=== PATIENT | male | born 1940 | race Caucasian/White ===

== ENCOUNTER → 2023-05-20 15:38 | Outpatient (REF) | payer OTHER, SELFPAY | LOC: RAD 15:38 | PROVIDERS: ATTENDING PHYSICIAN Orthopaedic Surgery Hand Surgery; FAMILY PHYSICIAN Family Medicine | DX: M25.521 Pain in right elbow (principal) | CPT/HCPCS: 73080 ==

== ENCOUNTER → 2023-06-30 08:11 | Outpatient (REF) | payer OTHER, SELFPAY | LOC: DHCBC MAIN 08:11 | PROVIDERS: ATTENDING PHYSICIAN Internal Medicine Cardiovascular Disease; FAMILY PHYSICIAN Family Medicine | DX: I10 Essential (primary) hypertension (principal); Z95.4 Presence of other heart-valve replacement | CPT/HCPCS: 93306 ==

== ENCOUNTER → 2024-09-11 09:08 | Outpatient (REF) | payer OTHER, SELFPAY | LOC: RCS 09:08 | PROVIDERS: ATTENDING PHYSICIAN Internal Medicine Cardiovascular Disease; FAMILY PHYSICIAN Family Medicine | DX: Z95.4 Presence of other heart-valve replacement (principal); R42 Dizziness and giddiness | CPT/HCPCS: 93306 ==

== ENCOUNTER 2024-11-29 05:22 | Inpatient (IN) | payer OTHER, SELFPAY ==
[2024-11-29] VITALS (18 sets, daily range): BP systolic 111–155; BP diastolic 67–97; BMI 28.5; BMI 28.4
[2024-11-29 03:12] LABS: Hematocrit 43.9 % (39.0-52.0); Hemoglobin 15.0 g/dL (13.0-18.0); Mean Corp Hgb Conc. 34.2 g/dL (33.0-37.0); Mean Corpuscular Volume 88.7 fL (80.0-94.0); Nucleated Red Blood Cells % 0 % (-); Platelet Count 164 10^3/uL (130-400); Red Cell Dist. Width 12.6 % (11.5-14.5)
[2024-11-29 03:38] LABS: ALT (SGPT) 24 U/L (0-50); AST (SGOT) 29 U/L (17-59); Albumin 4.2 g/dl (3.5-5.0); Alkaline Phosphatase 60 U/L (38-126); Blood Urea Nitrogen 25 mg/dl (9-20); Calcium 9.2 mg/dl (8.4-10.2); Carbon Dioxide 19 mmol/L (22-30); Chloride 108 mmol/L (98-107); Estimated Creatinine Clearance 53 ml/min; Glucose 185 mg/dl (70-99); Potassium 4.5 mmol/L (3.5-5.1); Sodium 137 mmol/L (135-145); Total Protein 6.8 g/dl (6.3-8.2); eGFR > 60.00
[2024-11-29 03:55] LABS: Troponin I 0.101 ng/ml
--- NOTE | 2024-11-29 04:07 | ED.GENMED ---
History of Present Illness
General
Chief Complaint: Breathing Problem
Source: patient
Exam Limitations: none
Time Seen by Provider: 11/29/24 02:47
History of Present Illness
History of Present Illness:
Note:
CHIEF COMPLAINT(S)
Shortness of breath and recent upper respiratory symptoms.
HISTORY OF PRESENT ILLNESS
The patient is a male presenting with a history of upper respiratory symptoms that began last Tuesday. He reports experiencing a persistent �nasty cold� initially, which he felt resolved by Tuesday. Subsequently, upon exertion, such as walking or
climbing stairs, he noticed significant shortness of breath. This shortness of breath ultimately prompted him to seek emergency medical assistance. He denies experiencing fever, and his pain is primarily attributed to the breathing difficulty,
although described as mild if present.
The patient reports undergoing a chest-related surgery approximately ten years ago involving a mechanical valve replacement and coronary artery procedures on the right coronary artery and the left anterior descending artery (RCA and LAD).
During the pre-hospital assessment by ambulance services, he received two albuterol treatments and steroids, which have aided in alleviating his breathing difficulties.
ALLERGIES
The patient reports allergies to aspirin, saccharin, lithium, rosuvastatin
SOCIAL HISTORY
The patient is currently on lithium for the management of bipolar disorder.
REVIEW OF SYSTEMS
- Respiratory: Reports significant shortness of breath, particularly on exertion.
- Cardiovascular: No history or symptoms of fever. Denies previous history of asthma, emphysema, or chronic obstructive pulmonary disease (COPD).
PHYSICAL EXAM
General: Alert, mild respiratory distress
Skin: Warm, dry.
Head: Normocephalic, atraumatic.
Neck: Supple, trachea midline. No JVD
Eye Ears, Nose, Mouth, and Throat: Oral mucosa moist.
Cardiovascular: Heart regular and tachycardic. No lower extremity edema, no jugular venous distension.
Respiratory: Respirations somewhat labored, lung sounds coarse bilaterally. Breathing treatments have provided symptom relief.
Back: Normal range of motion, Normal alignment.
Musculoskeletal: Normal range of motion, normal strength.
Neurological: Alert and oriented to person, place, time, and situation, No focal neurological deficit observed.
Psychiatric: Cooperative, appropriate mood & affect.
PROBLEM LIST
Acute:
- Shortness of breath
- Upper respiratory symptoms
Chronic:
- History of mechanical mitral valve replacement and coronary artery procedures
- Bipolar disorder
PLAN
1. Obtain chest X-ray and laboratory work to rule out pneumonia.
2. Test for COVID-19 and influenza.
3. Continuing observation and symptomatic treatment for shortness of breath.
DIFFERENTIAL DIAGNOSIS
The Differential Diagnosis includes, in no particular order and is not limited to:
1. Pneumonia
2. Chronic Obstructive Pulmonary Disease exacerbation
3. Heart failure
4. Pulmonary embolism
5. Acute bronchitis
6. Viral upper respiratory infection
7. Influenza
8. Asthma exacerbation
9. Anxiety or panic attack
10. Pulmonary edema
EKG
My independent EKG interpretation is:
- Rhythm: Sinus tachycardia
- Heart Rate: 119 bpm
- [place]: Normal
- Notable Changes: Non-specific ST-T wave changes noted
- Abnormality: Anterior R wave progression concerns
Disposition:
SUMMARY OF ENCOUNTER
The patient is an 84-year-old male who presented with hypoxia and dyspnea, exacerbated by a recent illness he described as similar to 'a few days.' He was seen by his primary care provider before presenting to the emergency department with
significant hypoxia. EMS administered dexamethasone and albuterol treatments. A chest X-ray revealed bilateral infiltrates and signs of possible volume overload. The patient was treated empirically with broad-spectrum antibiotics, and blood cultures
were obtained along with a lactic acid level. Laboratory results indicated a white blood cell count of 13.5 x10^9/L with a mild left shift (79% neutrophils), elevated troponin at 0.101 ng/mL suggestive of hypoxic demand, and a BNP level of 1550
pg/mL. [place] levels were low at 0.4 mmol/L. The patient was managed with IV antibiotics, and diuretics due to suspected volume overload. Oxygen therapy was escalated from nasal cannula to mid-flow to maintain oxygen saturation above 92%.
DISPOSITION
Admit.
ASSESSMENT
The findings suggest acute respiratory issues with bilateral pulmonary infiltrates potentially related to pneumonia or heart failure exacerbated by volume overload. Consideration given to the elevated BNP and mild troponin elevation suggests
involvement of cardiac stress possibly related to hypoxia.
EMERGENCY TREATMENTS ADMINISTERED
Dexamethasone, albuterol, broad-spectrum antibiotics, and diuretics.
MANAGEMENT OF THE PATIENTS CARE WAS DISCUSSED WITH
The case was discussed with the hospitalist for admission and further management.
PLAN
Continue intravenous antibiotics and mid-flow oxygen therapy. Admit for further evaluation and management.
INDEPENDENT REVIEW OF LABS AND INTERPRETATION OF TESTS
- My independent review of the CBC indicates a white blood cell count of 13.5 x10^9/L with a mild left shift of 79% neutrophils.
- My independent review of the CMP reveals troponin elevation at 0.101 ng/mL and the lithium level at 0.4 mmol/L.
- My independent review of the BNP indicates an elevated level at 1550 pg/mL.
- My independent review of the chest X-ray shows bilateral infiltrates suggestive of possible pneumonia or fluid overload.
MEDICATION RECONCILIATION
- Dexamethasone administered.
- Albuterol administered.
- Intravenous antibiotics initiated.
- Diuretics given.
MEDICAL DECISION MAKING
Chronic conditions affecting care include a history of mitral valve regurgitation, previous cardiac disease, and endocratitis. The differential diagnosis includes:
- Pneumonia
- Heart failure
- Pulmonary edema
- Acute bronchitis
- Pulmonary embolism
- Chronic obstructive pulmonary disease exacerbation
- Viral upper respiratory infection
- Influenza
- Asthma exacerbation
- Anxiety or panic attack
-Data:
Category 1
- My independent interpretation of EKG reveals sinus tachycardia, heart rate of 119 bpm, with non-specific ST-T wave changes.
- Prior records reviewed, including a discharge summary from October 2019 for severe mitral valve regurgitation and other cardiac history.
Category 3
- Discussion of management with the hospitalist.
DIAGNOSIS
- Acute Respiratory Distress (ICD-10: J80)
- Bilateral Pneumonia (suspected) (ICD-10: J18.9)
- Congestive Heart Failure Exacerbation (suspected) (ICD-10: I50.9)
- Elevated Troponin indicating possible cardiac strain with hypoxia (ICD-10: R79.89)
Past History
Past History
ED Past Medical History: CAD, HTN, Hypercholesterolemia, Psychiatric and Other (Mitral regurg)
ED Past Surgical History: Cardiac (Cardiac stenting) and Orthopedic
Social History
Tobacco: Non-smoker
Drug: None
Personal:
Living: with family
Employment: Retired
Family History
Family History: Other
Phy Exam
Physical Exam
Physical Exam:
.
Scores
Heart Failure Risk
Heart Failure Risk Score: Not Applicable
Course
Orders/Labs/Results
Orders:
Orders
11/29/24
Electrocardiogram (*1) Stat
Reason for Study: Chest Pain
Comment: DONE
11/29/24 02:52
CR Chest - 2 Views Urgent
Comment:
Reason For Exam: sob
11/29/24 02:57
Complete Blood Count/With Diff Urgent
Comprehensive Metabolic Panel Urgent
Lactic Acid Q4H
Comment: CANCEL 2nd LACTIC ACID IF 1st LACTIC ACID IS LESS THAN 2
[place] Urgent
Comment: ADD ON
NT-proBNP Urgent
Troponin I Urgent
Blood Culture Q30M
JACINTA Source: Blood/Venous
Specimen Description:
Influenza A+B Rapid Molecular Urgent
JACINTA Source: Nasal Swab
Specimen Description:
11/29/24 03:50
Blood Culture Q30M
JACINTA Source: Blood/Venous
Specimen Description:
11/29/24 04:04
Furosemide [Lasix] 40 mg IV NOW STA
Piperacillin/Tazo 3.375 Gram [Zosyn] 3.375 gram in 50 ml IV NOW
11/29/24 04:05
Vancomycin [Vancocin] 2,000 mg 0.9% Sodium Chloride 500 ml [Nss] 500 ml IV NOW
11/29/24 04:06
Add On- LAB Urgent
Tests Added?: lithium
11/29/24 05:03
Admit/Transfer Patient As Directed
Co-Sign Provider:
Level of Care: Inpatient admission
Assign to:: IMU- Intermediate Care
Physician / Group: Michele
Diagnosis: Pneumonia, Acute Hypoxemic Respiratory Failure
Reason for Hospitalization: Pneumonia, Acute Hypoxemic Respiratory Failure
Expected length of stay greater than two midnights?: Yes
ELOS- Estimated Length of Stay in days: 4
I certify the patient meets the requirements for IP care: Yes
PRN Pain Medication Management As Directed
May give lesser potent ordered pain med per pt: Yes
preference::
Protocol:: Medication orders for pain may be administered in a
manner that supports deferring to patient preference
when the pt is:
- Requesting an ordered lesser potent pain medication.
Least to most potent pain medications are defined
as: acetaminophen < NSAID < tramadol < opioids
(morphine, oxycodone, hydromorphone).
- Requesting a lesser dose of the same medication IF
ORDERED.
- Requesting a less intrusive route of administration
if both routes are prescribed by the provider (PO <
IV).
11/29/24 05:04
Code Status As Directed
Resuscitation Status: Full Code
11/29/24 05:12
COVID-19 Antigen Urgent
Source: Nasal Swab
11/29/24 07:00
Lactic Acid Q4H
Comment: CANCEL 2nd LACTIC ACID IF 1st LACTIC ACID IS LESS THAN 2
Abnormal Lab Results
11/29/24
02:57
WBC 13.5 H 10^3/uL
(4.8-10.8)
Abs Immat Gran (auto) 0.1 H 10^3/uL
(0-0.05)
Absolute Neuts (auto) 10.7 H 10^3/uL
(1.4-6.5)
Absolute Monos (auto) 0.8 H 10^3/uL
(0.1-0.6)
Neutrophils % 79.7 H %
(42.2-75.2)
Lymphocytes % 13.5 L %
(20.5-51.1)
Chloride 108 H mmol/L
(98-107)
Carbon Dioxide 19 L mmol/L
(22-30)
BUN 25 H mg/dl
(9-20)
Glucose 185 H mg/dl
(70-99)
Troponin I 0.101 H* ng/ml
[place] 0.4 L mmol/L
(0.6-1.2)
11/29/24 02:57
11/29/24 02:57
Vital Signs
Initial and Last Documented VS:
Initial Vital Signs
Pulse Resp BP Pulse Ox
123 26 155/90 95
11/29/24 02:47 11/29/24 02:47 11/29/24 02:47 11/29/24 02:47
Last Documented Vital Signs
Temp Pulse Resp BP Pulse Ox
98.6 F 111 37 135/77 93
11/29/24 02:56 11/29/24 04:16 11/29/24 04:00 11/29/24 04:16 11/29/24 04:08
*Pulse Oximetry
SaO2: 93
Nasal Cannula flow liters per minute: 4
Patient hypoxic: yes
*Solar Consultant Interpretation
Rate: tachycardiac
Interpretation: abnormal
Rhythm: sinus
*Critical Care Note
Total Time (30-74mins, 75-104mins- exclusive of procedures): 35 minutes
ED Attending Note
-
Portions of this chart may have been created with voice recognition software.� Occasional wrong word or��sound alike� substitutions may have occurred due to the inherent limitations of voice recognition software.
Discharge Plan
Departure
Patient Disposition: Admit
Date of Disposition: 11/29/24
Time of Disposition: 04:12
Admit to: IMU
Presentation/result/management discussed w/ accepting MD/DO: Hospitalist
Discharge Problem:
Bilateral pneumonia, Hypoxia
Prescriptions:
No Action
finasteride 5 MG tablet
5 mg PO DAILY
lithium carbonate 300 MG capsule
300 mg PO TID
Patient Comments:
AM,NOON,PM
aspirin [Aspir-Low] 81 MG tablet,delayed release (DR/EC)
81 mg PO DAILY Qty: 0 0RF
valsartan 160 mg tablet
160 mg PO DAILY
rosuvastatin 40 mg tablet
40 mg PO HS
escitalopram oxalate 5 mg tablet
5 mg PO DAILY
Referrals:
UNKNOWN - PT NOT,INTERVIEWE [Family Provider]
Interventions
Interventions:
*Risk Screen - Suicide Last Done: 11/29/24 02:47
*General Assessment Last Done: 11/29/24 02:47
*Neglect/Abuse Screening Last Done: 11/29/24 02:47
*ED- Fall Risk Assessment Last Done: 11/29/24 02:47
*ED COVID-19 Vaccine History Last Done: 11/29/24 02:47
ED- Cardiac Assessment Last Done: 11/29/24 03:08
ED- Pulmonary Assessment Last Done: 11/29/24 03:08
Discharge Date and Time
Print Language: [place] CITIZEN
[2024-11-29] MEDS: ZOSYN 50 IV (04:15)
[2024-11-29] MEDS: LASIX 40 MG IV (04:16)
[2024-11-29 04:31] LABS: Lithium 0.4 mmol/L (0.6-1.2)
[2024-11-29] MEDS: VANCOCIN 540 MG IV (04:56)
--- NOTE | 2024-11-29 05:07 | HPS.HSE ---
Family Physician
-
Family Physician: INTERVIEWE UNKNOWN - PT NOT
Chief Complaint
-
SOB
History of Present Illness
Patient is an 84y M with PMH significant for ASCVD, mitral valve replacement and bipolar disorder who presents to ED complaining of SOB. Patient attended a reunion at [place] on Tuesday and was around a large crowd of people. On Tuesday he
developed 'cold symptoms' including sneezing, coughing and runny nose. On Tuesday he noted shortness of breath with his usual daily walk. He had continued cough with production of yellow mucus. No fevers / chills. His shortness of breath has
become gradually worse throughout the week. Today he was seen by his PCP and prescribed azithromycin for his symptoms.
This evening he was short of breath simply lying in bed and called 911.
He denies any chest pain or palpitations. No GI or complaints.
His is also ill with cough / cold symptoms.
Medical History
Past Medical History
Past Medical History: Reports Other
Additional Past Medical History:
ASCVD
Mitral Regurgitation
Bacterial Endocarditis Mitral Valve
Hypertension
Bipolar Depression
BPH
Past Surgical History: Reports Other
Additional Past Surgical History:
PTCA with Stents
BioMVR
Left TKA
Left Elbow Surgery
Social History
Tobacco: Non-smoker
Alcohol: Occasional
Drug: None
Family History
Family History: Not pertinent
Allergies / Home Medications
Allergies reflects when Allergies were last updated in [facility].
Home Medications with original date entered in [facility]
Allergy/Medication List:
Allergies
Allergy/AdvReac Type Severity Reaction Status Date / Time
No Known Allergies Allergy Verified 09/28/19 15:39
Home Medications
finasteride 5 mg tablet 5 mg PO DAILY Urinary issue 06/03/08
lithium carbonate 300 mg capsule 300 mg PO TID Mental Health/Anxiety 01/03/19
aspirin 81 mg tablet,delayed release (Aspir-Low) 81 mg PO DAILY ##0 10/07/19
escitalopram oxalate 5 mg tablet 5 mg PO DAILY 11/29/24
rosuvastatin 40 mg tablet 40 mg PO HS 11/29/24
valsartan 160 mg tablet 160 mg PO DAILY 11/29/24
Review of Systems
-
History Source: Patient
A 12 point ROS was completed and negative except as noted: Yes
Constitutional: Reports Fatigue; Denies Fever or Chills
EENT: Reports Runny Nose; Denies Sore Throat
Respiratory: Reports Cough and Trouble Breathing
Cardiac: Denies Chest Pain or Palpitations
Abdomen/GI: Denies Abdominal Pain, Nausea, Vomiting or Diarrhea
: Denies Dysuria or Frequency
Musculoskeletal: Denies Edema
Neurological: Denies Dizzy or Headache
Psych: Denies Depression or Anxiety
Physical Exam
Vital Signs
Vital Signs
Temp Pulse Resp BP Pulse Ox
98.6 F 111 37 135/77 93
11/29/24 02:56 11/29/24 04:16 11/29/24 04:00 11/29/24 04:16 11/29/24 04:08
Physical Exam
General: Other (84y M in mild distress due to dyspnea.)
HEENT: Moist mucous membranes, PERRLA and Other (No JVD or HJR.)
Respiratory: Other (Bibasilar rales - L > R. No wheeze / rhonchi.)
Cardiac: S1/S2, Regular Rhythm and Tachycardia; No Murmur
GI: Soft, Non Tender, Non Distended and Normal Bowel Sounds
Musculoskeletal: No Clubbing, No Cyanosis and No Edema
Neuro: AO x 3
Laboratory Results
-
11/29/24 02:57
11/29/24 02:57
Laboratory Results
Lactic Acid 1.5 mmol/L (0.7-2.0) 11/29/24 02:57
Total Bilirubin 1.3 mg/dl (0.2-1.3) 11/29/24 02:57
AST 29 U/L (17-59) 11/29/24 02:57
ALT 24 U/L (0-50) 11/29/24 02:57
Alkaline Phosphatase 60 U/L (38-126) 11/29/24 02:57
Troponin I 0.101 ng/ml H* 11/29/24 02:57
Impression/Plan
-
A/P: Patient is an 84y M with PMH significant for ASCVD, MV endocarditis and hypertension who presents to ED complaining of cough and SOB.
Pneumonia
Sepsis secondary to the above
Acute Hypoxemic Respiratory Failure secondary to the above
- Admit to IMU for further evaluation and treatment.
- Patient presents with tachycardia, tachypnea, leukocytosis and symptoms / CXR consistent with pneumonia.
- Abx to cover CAP with ceftriaxone and doxycycline.
- Influenza negative. Check COVID.
- Supportive care including nebs, mucolytics, etc.
- O2 support as needed - currently on midflow with adequate oxygenation.
- Follow-up available culture data.
- Follow for clinical improvement.
Mitral Regurgitation s/p [place] MVR
History of MV Endocarditis
- No chronic heart failure / diuretic use.
- Update Echo. Follow-up blood culture results.
- Follow for any new / worsening symptoms.
ASCVD
Non-Ischemic Myocardial Injury
- No chest pain. Mild elevation in troponin likely due to acute illness / sepsis.
- Follow troponin to peak.
- Continue daily ASA, statin, etc.
Benign Hypertension
- Stable. Continue valsartan with holding parameters.
Bipolar Disorder
- Stable. [place] level is not toxic.
- Continue current dose without changes.
BPH
- Stable. Continue finasteride.
- Bladder scan protocol.
DVT Prophylaxis: Lovenox
Code Status: Full
[2024-11-29 05:36] LABS: COVID-19 Antigen Negative (Negative)
[2024-11-29 08:05] LABS: Troponin I 0.167 ng/ml
[2024-11-29 08:09] LABS: Glucose - Point of Care 214 mg/dl (70-99)
[2024-11-29] MEDS: DIOVAN 160 MG PO (08:43)
[2024-11-29] MEDS: ASPIR LOW (ENTERIC COATED) 81 MG PO (08:43)
[2024-11-29] MEDS: VIBRAMYCIN 100 MG PO ×2 (08:43→20:44)
[2024-11-29] MEDS: PROSCAR 5 MG PO (08:43)
[2024-11-29] MEDS: MUCINEX 1200 MG PO ×2 (08:43→20:44)
--- NOTE | 2024-11-29 09:00 | EDCM ---
CM reviewed chart and met with pt bedside in ED. Lives with his in 2 story home, [address], has first floor half bath, full flight to second floor bedroom and full bath.
Independent in ADLs, personal care and ambulation at baseline. Does have a cane but rarely uses it. Still drives.
Confirms prescription coverage.
Hx [facility] in past, no hx SNF
PCP: Brody Sexton
Pharmacy: [facility]
Currently on O2, CM will continue to follow for any discharge planning needs.
--- NOTE | 2024-11-29 09:08 | CON.CAR ---
Addendum entered and electronically signed by Jareth Silver MD 11/29/24 15:05:
I saw and examined the patient. I performed the majority of MDM.
The METALLURGICAL LABORATORY ASSISTANT's note was reviewed and I agree with the note, with changes/additions below.
Comment: 84 yo male with PMH of bio-MVR 2019 in setting of endocarditis, CAD with prior stenting is admitted with SOB/ROSSI. He was at a reunion over the weekend. Then developed URI symptoms and progressive ROSSI. He presented to ED due to the ROSSI.
His WBC is elevated, and he is being treated for PNA. We are consulted for abnormal echo. Exam with RRR, diastolic murmur, no edema. Cr 1.1. Tele: SR 90s, PVC's. 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
pulmonary HTN.
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
-ROSSI attributed to respiratory infection, likely large in part due to valve disease
-discussed with CT surgery and interventional cardiology
-CT scan today: may be candidate for TMVR
-then KATI and cath tomorrow
-Bcx sent as he had endocarditis in past
respiratory illness
-Abx per hospitalist
Original Note:
Consultation
Consultation Request
Date/Time Consultation Requested: 11/29/24 0900
Date/Time Consultation Performed: 11/29/24 0907
Requesting Provider: Dr. Nagy
Performing Provider: Kaci PERES for Dr. Silver
Reason for Consultation: abnormal echo
Medical History
-
Chief Complaint: SOB
History of Present Illness:
84 y/o male (Dr. Tobar patient) with CAD (remote DE and stent), BioMVR 2019 for severe MR following endocarditis, hypertension, dyslipidemia, and bipolar disorder. He is here for evaluation of SOB. Briefly, on night he was at a large
gathering. Soon after, he developed a 'severe cold' with symptoms including sneezing and runny nose. Then [place] on his usual walk he developed ROSSI, which is unusual for him. By Tuesday night, he had significant SOB at rest (not particularly worse
with laying), so called EMS early AM. O2 sats were in high 80's and he is placed on supplemental O2. He is admitted and being treated for PNA/sepsis with IV abx. We are consulted due to abnormal echo (MVR significantly increased gradients) with
details as below. He is on O2 by [place] at the time of my assessment. He is sitting up and eating. He is in no distress. He denies fever or chills, but does feel warm and is mildly diaphoretic to my assessment this AM.
Past Medical History
Past Medical History: CAD, HTN, Hypercholesterolemia, Valvular Disease and Psychiatric (bipolar disorder)
Social History
Personal:
Living: With Family
Family History
Family History: Reviewed & Not Pertinent
Allergies / Home Medications
Allergy/AdvReac Type Severity Reaction Status Date / Time
No Known Allergies Allergy Verified 09/28/19 15:39
�Medication �Instructions �Recorded �Confirmed �Type
finasteride 5 mg tablet 5 mg PO DAILY Urinary issue 06/03/08 11/29/24 History
lithium carbonate 300 mg capsule 300 mg PO TID Mental Health/Anxiety 01/03/19 11/29/24 History
aspirin 81 mg tablet,delayed 81 mg PO DAILY ##0 10/07/19 11/29/24 Rx
release (Aspir-Low)
escitalopram oxalate 5 mg tablet 5 mg PO DAILY 11/29/24 11/29/24 History
rosuvastatin 40 mg tablet 40 mg PO HS 11/29/24 11/29/24 History
valsartan 160 mg tablet 160 mg PO DAILY 11/29/24 11/29/24 History
Review of Systems
-
History Source: Patient
All other systems: Negative unless noted
EENT: Runny Nose and Other (as above)
Respiratory: Trouble Breathing
Physical Exam
Vital Signs
Temp Pulse Resp BP Pulse Ox
98.2 F 91 28 127/79 95
11/29/24 06:57 11/29/24 07:00 11/29/24 07:00 11/29/24 07:00 11/29/24 08:48
Lab Results
11/29/24 02:57
11/29/24 02:57
Troponin I 0.167 ng/ml H* D 11/29/24 07:28
Rib-N-[place] Pept 1550 pg/ml 11/29/24 02:57
Physical Exam
General: Well Developed, Well Nourished and No Apparent Distress
HEENT: Normocephalic and Anicteric
Respiratory: Clear, Non Labored Respirations and Other (on O2 by [place], diminished lung sounds)
Cardiac: Regular Rhythm and Murmur (II/ systolic)
Musculoskeletal: No Edema
Skin: Warm and Dry
Neuro: AO x 3
Psych: Calm
Impression / Plan
-
SOB, acute hypoxemic respiratory failure (diagnosis is threat to life):
-on O2 by [place]
-PNA is suspected and patient on IV ABX. Sepsis criteria met and blood cultures are pending.
-also with abnormal echo with w/u plan as below
-CXR suggestive CHF and BNP elevated, but weight is down from last OV and no edema. Lungs do not have rales. He did get a dose of IV lasix in ER. Monitor volume status.
Hx MVR 2019, hx endocarditis:
-Echo this AM: Left ventricle appears small and underfilled. Hyperdynamic LV systolic function. Estimated LVEF 70-75%. Mild aortic stenosis. S/p bio-prosthetic mitral valve replacement. Leaflets appear thickened. Severely elevated gradients.
Peak/mean 38/23mmHg. Mild mitral regurgitation. The right ventricular cavity size is mildly enlarged. Normal RV systolic function. Septal flattening consistent with RV pressure overload. Moderate tricuspid regurgitation. Estimated pulmonary artery
pressure of 84 mmHg assuming a right atrial pressure of 8 mmHg. Severely elevated PASP
-plan for KATI tomorrow
-blood cx pending
CAD:
-stable without reports of CP
-continue ASA, statin
HTN:
-stable, monitor
Abnormal troponin:
-acute, non-ischemic myocardial injury in setting of acute illness
-no reports of CP. Echo as noted. Trend to peak.
Bipolar disorder:
-on medical therapy
Data Reviewed
-
EKG: Tracing Personally Visualized and interpreted (ST with PAC's)
Radiology: Report Reviewed by me (CXR: Findings most consistent with congestive heart failure. (per radiology))
Medical Tests (Nuc Med, Echo etc): Report Reviewed by me (Echo: Left ventricle appears small and underfilled. Hyperdynamic LV systolic function. Estimated LVEF 70-75%.Mild aortic stenosis. S/p bio-prosthetic mitral valve replacement. Leaflets appear
thickened. Severely elevated gradients. Peak/mean 38/23mmHg. Mild mitral regurgitation. The right ventricula)
Labs: Labs Reviewed by me
[2024-11-29] MEDS: NOVOLOG FLEXPEN-LOW RESISTANCE 2 UNITS SC (09:16)
[2024-11-29] MEDS: STERILE WATER FOR INJECTION 10 ML IV (09:17)
[2024-11-29] MEDS: ESKALITH REGULAR RELEASE 300 MG PO ×3 (09:17→21:58)
[2024-11-29] MEDS: ROCEPHIN 1000 MG IV (09:17)
[2024-11-29] MEDS: LEXAPRO 5 MG PO (09:17)
[2024-11-29 11:31] LABS: Glucose - Point of Care 280 mg/dl (70-99)
--- NOTE | 2024-11-29 12:15 | CM ---
Patient seen at bedside with physician in ED earlier today. Patient for medical workup per physician. Patient does not have home O2. CM will continue to follow for discharge planning needs.
Plan; home with VN watch for home O2 needs.
[2024-11-29] MEDS: NOVOLOG FLEXPEN-LOW RESISTANCE 3 UNITS SC (13:32)
[2024-11-29 13:39] LABS: Troponin I 0.128 ng/ml
--- NOTE | 2024-11-29 13:41 | CONSULT.CT ---
Consultation
-
Date/Time Consultation Requested: 11/29/24
Date/Time Consultation Performed: 11/29/24 1345
Requesting Provider: Dr. Thomas Silver MD.
Performing Provider: Mary Couch PA-C
Reason for Consultation: s/p St[employer] Anant Epic bioprothesis MVR now w/ stenosis/elevated gradients
Patient History
Physicians
Family Physician: Dr. Brody Sexton MD
Outpatient Radiology Equipment Servicer: Dr. Estevan Tobar MD.
Inpatient Radiology Equipment Servicer: [facility]-Dr. Thomas Silver MD.
History of Present Illness
Patient is an extremely pleasant 84-year-old male well-known to the cardiothoracic surgery service having previously undergone mitral valve replacement with a number 31 mm [employer] An[employer] epic bioprosthesis valve on 10/04/[address] Isac Mcintyre,
. 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
Patient carries a PMH significant for CAD status post PCI and BMS to the RCA and LAD in 2008 with old ID in 2008, MVR as stated above, HTN, HLD, bipolar disorder on lithium, history of inflammatory arthritis previously on immunosuppression but was
stopped September 2018 due to endocarditis, DJD status post left total knee in 2007, DJD of the cervical spine, BPH on finasteride, prediabetes hemoglobin A1c 6.2 in 2019, and erectile dysfunction.
Patient was doing well up until last week where he developed a severe cold with symptoms of sneezing and runny nose. He denies any fevers or chills. Patient then began to develop associated SOB and ROSSI. These continue to progress and the patient
sought medical attention in the way of EMS at [facility]'s emergency department on 11/29/2024. He was placed on supplemental O2 and treated with empiric IV antibiotics for possible pneumonia/sepsis. EKG revealed sinus tachycardia with
PACs (119 bpm). Patient was afebrile with temperature of 98.6, and had a mildly elevated leukocytosis with WBC of 13.5.
Further workup in the emergency department via echocardiogram revealed hyperdynamic LV with EF of 70 to 75%. Mild , GILA 1.6 cm�, no AI. Mitral valve status post bioprosthetic replacement. Severely elevated gradients, PG/MG 38/23, mild MR.
Moderate TR. Estimated PAP's 84 mmHg. Pulmonic valve with trace CO.
Given the patient's severely elevated mitral valve gradients CT surgery was consulted for evaluation.
Past Medical History
Past Medical History: Other
Severe MR, with MV endocarditis status post MVR 10/04/2019
CAD status post PCI and BMS to the RCA and LAD in 2008 with old ID in 2008
HTN/HLD
Bipolar disorder on lithium
History of inflammatory arthritis previously on immunosuppression but was stopped September 2018 due to endocarditis
DJD status post left total knee in 2007
DJD of the cervical spine
BPH on finasteride
Prediabetes hemoglobin A1c 6.2 in 2019
Erectile dysfunction.
Past Surgical History
Past Surgical History: Other
PCI/BMS to RCA and LAD 2008
MVR #31 Saint An[employer] epic bioprosthesis on 10/04/[address] Isac Mcintyre MD.
Family History
Mother: at Age (74) and Cause of (ID)
Father: at Age (70) and Cause of (ID)
Family Medical History: CAD
Social History
Alcohol: Occasional (1-2 drinks per week)
Drug: None
Tobacco: Non-Smoker
Personal: (2 children)
Living: With Spouse
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
Allergies
Allergy/AdvReac Type Severity Reaction Status Date / Time
No Known Allergies Allergy Verified 09/28/19 15:39
Home Medications
�Medication �Instructions �Recorded �Confirmed �Type
finasteride 5 mg tablet 5 mg PO DAILY Urinary issue 06/03/08 11/29/24 History
lithium carbonate 300 mg capsule 300 mg PO TID Mental Health/Anxiety 01/03/19 11/29/24 History
aspirin 81 mg tablet,delayed 81 mg PO DAILY ##0 10/07/19 11/29/24 Rx
release (Aspir-Low)
escitalopram oxalate 5 mg tablet 5 mg PO DAILY 11/29/24 11/29/24 History
rosuvastatin 40 mg tablet 40 mg PO HS 11/29/24 11/29/24 History
valsartan 160 mg tablet 160 mg PO DAILY 11/29/24 11/29/24 History
Review of Systems
-
History Source: Patient
General: Denies Fever, Weight Gain, Weight Loss, Night Sweats or Chills
HEENT: Denies Visual Changes, Dysphagia, Hoarseness or Sore Throat
Respiratory: Reports SOB and ROSSI; Denies Cough, Asthma or PND
Cardiac: Denies Chest Pain, Palpitations, Nausea, Vomiting, Diaphoresis or Edema
Abdomen/GI: Reports Reflux; Denies Abdominal Pain, Indigestion, Nausea, Vomiting, Constipation or BRBPR
: Reports Nocturia (1-2x/night); Denies Dysuria, Frequency, Incontinence or Hematuria
Musculoskeletal: Denies Myalgias, Arthralgias or Edema
Skin: Denies Itching or Rash
Neurological: Denies CVA, TIA, Headaches, Syncope, Dizzy, Numbness or Seizures
Vascular: Denies Claudication
Physical Exam
Vital Signs
Temp 97.6 F 11/29/24 11:24
Temp route: Oral 11/29/24 11:24
Pulse 100 11/29/24 11:24
Rhythm: Normal sinus rhythm 11/29/24 08:46
With- PVC's Monomorphic, Sinus tachycardia 11/29/24 08:46
Resp Rate 20 11/29/24 11:24
Blood pressure 132/83 11/29/24 11:24
Blood pressure extremity used: Right upper arm 11/29/24 11:24
Position: Lying 11/29/24 11:24
MAP (cuff-Mariaelena Monitor) 94 11/29/24 07:00
SaO2 96 11/29/24 11:24
Nasal Cannula flow liters per minute 4 11/29/24 11:24
Oxygen Mode of Delivery Midflow Nasal Cannula 11/29/24 08:48
Flow liters per minute # 5 11/29/24 08:48
% Oxygen delivered 95 11/29/24 06:07
Can the patient verbally communicate their pain? Yes 11/29/24 08:46
Actual Weight 198 lb 11/29/24 11:24
Body Mass Index (BMI) 28.4 11/29/24 11:24
Labs
11/29/24 02:57
11/29/24 02:57
Troponin I 0.128 ng/ml H* 11/29/24 12:50
Vhz-A-Pdhlpsodkqu Pept 1550 pg/ml 11/29/24 02:57
Diagnostic Studies
See HPI
Exam
General: Well Developed, Well Nourished and No Apparent Distress
HEENT: Normocephalic, Moist Mucous Membranes, Atraumatic, PERRLA and EOMI
Neck: Trachea Midline; Negative Carotid Bruit
Respiratory: Clear; Negative Wheezes, Crackles, Rhonchi or Accessory Muscle Use
Cardiac: S1/S2 and Regular Rhythm; Negative Murmur, Rub or Gallop
GI: Soft, Non Tender, Non Distended and Normal Bowel Sounds
Rectal: Deferred by Provider
Skin: Warm and Dry; Negative Rash
Neuro: AO x 3, No Motor Deficits and CN X-XII Intact
Extremities: Negative Upper Level Edema, Lower Level Edema, Upper Level Cyanosis, Lower Level Cyanosis, Upper Level Clubbing or Lower Level Clubbing
Psych: Calm
Assessment / Plan
-
Assessment:
84-year-old male with PMH significant for:
Severe MR, with MV endocarditis status post MVR 10/04/2019
CAD status post PCI and BMS to the RCA and LAD in 2008 with old ID in 2008
HTN/HLD
Bipolar disorder on lithium
History of inflammatory arthritis previously on immunosuppression but was stopped September 2018 due to endocarditis
DJD status post left total knee in 2007
DJD of the cervical spine
BPH on finasteride
Prediabetes hemoglobin A1c 6.2 in 2019
Erectile dysfunction
Now with newly diagnosed:
SOB/ROSSI, acute hypoxemic respiratory failure
Abnormal troponin, peak 0.167 liekly due to non-ischemic myocardial injury
Severely elevated mitral valve gradients/stenosis w/ PG/MG /
Plan:
Patient's case we discussed with attending physician
He will also be discussed with interventional cardiology. Patient may be a candidate for transcatheter mitral valve replacement.
Further details will be determined after both services full review
--- NOTE | 2024-11-29 15:19 | W.PN.HOSP.TC ---
Today's Communication/Plan
-
KATI and cath in AM
apprec cards and CT surg
Assessment / Plan
Assessment / Plan
pt is an 84 year old male
Acute Hypoxemic Respiratory Failure --multifactorial--sepsis due to PNA, recent URI, cardiac cause- Patient presents with tachycardia, tachypnea, leukocytosis and symptoms / CXR consistent with pneumonia--cont rocephin/doxy--flu and covid
negative--cont nebs--O2, wean to off as tolerated--blood cultures pending
Mitral Regurgitation s/p Bovine MVR/History of MV Endocarditis - No chronic heart failure / diuretic use--ECHO with severely elevated gradients across replaced mitral valve--other valvular issues as well--consult cards--CT surg consulted--KATI and
cardiac cath tomorrow--apprec input
ASCVD--Non-Ischemic Myocardial Injury--troponin peaked at 0.167--apprec cards--cath in AM - Continue daily ASA, statin, etc.
Essential Hypertension - Stable. Continue valsartan with holding parameters.
Bipolar Disorder - Stable. [place] level is not toxic- Continue current dose without changes.
BPH- Stable. Continue finasteride - Bladder scan protocol.
DVT Prophylaxis: Lovenox
Code Status: Full
Anticipated Discharge: > 48 hours
Subjective/Interval History
-
Date of Service: November 29, 2024
pt feeling a bit better--SOB with exertion
Objective Data
-
Labs:
Laboratory Results
11/29/24
02:57
Sodium 137
Potassium 4.5
Chloride 108 H
Carbon Dioxide 19 L
BUN 25 H
Creatinine 1.1
Glucose 185 H
Calcium 9.2
Total Bilirubin 1.3
AST 29
ALT 24
Alkaline Phosphatase 60
Vital Signs:
max temp for 24 hours
11/29/24
02:56
Temp 98.6 F
Vital Signs
Temp Pulse Resp BP Pulse Ox
97.6 F 100 20 132/83 96
11/29/24 11:24 11/29/24 11:24 11/29/24 11:24 11/29/24 11:24 11/29/24 11:24
I&O
11/28/24 11/29/24 11/30/24
06:59 06:59 06:59
Output Total 250 / 250
Balance -250 / -250
Review of Systems
-
All other systems: Reviewed and negative
Respiratory: Reports Trouble Breathing
Physical Exam
-
General: Well Developed, Well Nourished and No Apparent Distress
HEENT: Normocephalic, Atraumatic and Oxygen
Respiratory: Crackles (at bases bilaterally)
Cardiac: Regular Rhythm and S1/S2; Negative Murmur
GI: Soft, Nontender, Nondistended and Normal Bowel Sounds
Musculoskeletal: No Clubbing, No Cyanosis and No Edema
Skin: Warm
Neuro: Awake
Psych: Calm
[2024-11-29 16:45] LABS: Glucose - Point of Care 181 mg/dl (70-99)
[2024-11-29] MEDS: NOVOLOG FLEXPEN-LOW RESISTANCE 1 UNITS SC (17:55)
[2024-11-29] MEDS: LOVENOX 40 MG SC (17:55)
[2024-11-29 21:28] LABS: Glucose - Point of Care 176 mg/dl (70-99)
[2024-11-29] MEDS: CRESTOR 40 MG PO (21:58)
[2024-11-29 22:40] LABS: Troponin I 0.082 ng/ml
[2024-11-30] VITALS (12 sets, daily range): BP systolic 118–151; BP diastolic 77–121; BMI 28.5
[2024-11-30 06:25] LABS: Glucose - Point of Care 136 mg/dl (70-99)
[2024-11-30 07:18] LABS: Hematocrit 41.6 % (39.0-52.0); Hemoglobin 14.0 g/dL (13.0-18.0); Mean Corp Hgb Conc. 33.7 g/dL (33.0-37.0); Mean Corpuscular Volume 86.8 fL (80.0-94.0); Platelet Count 185 10^3/uL (130-400); Red Cell Dist. Width 12.6 % (11.5-14.5)
[2024-11-30 07:43] LABS: Blood Urea Nitrogen 30 mg/dl (9-20); Calcium 9.4 mg/dl (8.4-10.2); Carbon Dioxide 19 mmol/L (22-30); Chloride 110 mmol/L (98-107); Estimated Creatinine Clearance 65 ml/min; Glucose 141 mg/dl (70-99); Magnesium 2.0 mg/dl (1.6-2.3); Potassium 4.6 mmol/L (3.5-5.1); Sodium 137 mmol/L (135-145); eGFR > 60.00
[2024-11-30 08:07] LABS: Glycohemoglobin (HgbA1c) 6.4 % (4.0-5.6)
[2024-11-30] MEDS: NOVOLOG FLEXPEN-LOW RESISTANCE SC ×3 (09:09→18:11)
--- NOTE | 2024-11-30 10:56 | W.PN.UPDATE ---
Update Note
Progress Note Update
Patient's KATI was reviewed by Dr. Batres. The mitral valve appears to be thrombosed. A plan was developed with Dr. Ruiz. Patient will get a LHC today and get a heparin bolus and then started on systemic heparin infusion with the goal of a
therapeutic ptt for about one week with plans to transition to a OAC. Patient will be transferred to IVU for the remainder of his care and repeat echo next week. Plan was communicated with his primary team via TT.
Dori PERES
Cardiac Surgery
[2024-11-30 11:39] LABS: Hematocrit 43.2 % (39.0-52.0); Hemoglobin 14.5 g/dL (13.0-18.0); Mean Corp Hgb Conc. 33.6 g/dL (33.0-37.0); Mean Corpuscular Volume 88.5 fL (80.0-94.0); Platelet Count 195 10^3/uL (130-400); Red Cell Dist. Width 12.7 % (11.5-14.5)
[2024-11-30 11:49] LABS: APTT 27.0 Sec (23.4-35.0)
[2024-11-30] MEDS: ASPIR LOW (ENTERIC COATED) 81 MG PO (11:56)
[2024-11-30] MEDS: MUCINEX 1200 MG PO (11:56)
[2024-11-30] MEDS: DIOVAN 160 MG PO (11:56)
[2024-11-30] MEDS: PROSCAR 5 MG PO (11:57)
[2024-11-30] MEDS: ESKALITH REGULAR RELEASE 300 MG PO ×3 (11:57→23:46)
[2024-11-30] MEDS: VIBRAMYCIN 100 MG PO ×2 (11:57→19:31)
[2024-11-30] MEDS: ROCEPHIN 1000 MG IV (11:57)
[2024-11-30] MEDS: LEXAPRO 5 MG PO (11:57)
[2024-11-30] MEDS: STERILE WATER FOR INJECTION 10 ML IV (11:57)
[2024-11-30 12:03] LABS: Glucose - Point of Care 135 mg/dl (70-99)
--- NOTE | 2024-11-30 13:20 | CM ---
Patient seen at bedside with physician. Physician updated patient following recent testing and plan is for patient to transfer to IVU for further treatment. Patient plan is for home with VN if needed and currently is no longer on O2. CM will
continue to follow for discharge planning needs.
Plan; home with VN vs home with no needs. watch O2 needs.
--- NOTE | 2024-11-30 13:45 | W.PN.HOSP.TC ---
Today's Communication/Plan
-
cath this afternoon, transfer to IVU, 1 week of IV heparin drip followed by repeat KATI and oral anticoagulation next week
Assessment / Plan
Assessment / Plan
pt is an 84 year old male
Acute Hypoxemic Respiratory Failure --multifactorial--sepsis due to PNA, recent URI, cardiac causes- Patient presents with tachycardia, tachypnea, leukocytosis and CXR consistent with pneumonia--cont rocephin/doxy--flu and covid negative--cont
nebs--O2, wean to off as tolerated--blood cultures pending
Mitral Regurgitation s/p Bovine MVR/History of MV Endocarditis - No chronic heart failure/diuretic use--ECHO with severely elevated gradients across replaced mitral valve--other valvular issues as well--apprec cards--CT surg consulted--KATI shows
thrombosed mitral valve, plan as per CT surg and cards is cath this afternoon, transfer to IVU, 1 week of IV heparin drip followed by repeat KATI and oral anticoagulation--apprec input
ASCVD--Non-Ischemic Myocardial Injury--troponin peaked at 0.167--apprec cards--cath today - Continue daily ASA, statin, etc.
Essential Hypertension - Stable. Continue valsartan with holding parameters.
Bipolar Disorder - Stable. [place] level is not toxic- Continue current dose without changes.
BPH- Stable. Continue finasteride - Bladder scan protocol.
DVT Prophylaxis: Lovenox
Code Status: Full
Anticipated Discharge: > 48 hours
Subjective/Interval History
-
Date of Service: November 30, 2024
pt s/p KATI
for cath later today
Objective Data
-
Labs:
Laboratory Results
11/30/24 11/30/24
06:48 11:29
WBC 14.1 H 13.4 H
Hgb 14.0 14.5
Hct 41.6 43.2
Plt Count 185 195
APTT 27.0
Sodium 137
Potassium 4.6
Chloride 110 H
Carbon Dioxide 19 L
BUN 30 H
Creatinine 0.9
Glucose 141 H
Calcium 9.4
Vital Signs:
max temp for 24 hours
11/30/24
07:00
Temp 97.8 F
Vital Signs
Temp Pulse Resp BP Pulse Ox
97.3 F 82 16 151/90 96
11/30/24 10:59 11/30/24 10:59 11/30/24 10:59 11/30/24 10:59 11/30/24 10:59
I&O
11/29/24 11/30/24 12/01/24
06:59 06:59 06:59
Intake Total 480 / 480 480 / 480
Output Total 250 / 250
Balance 230 / 230 480 / 480
Review of Systems
-
All other systems: Reviewed and negative
Physical Exam
-
General: Well Developed, Well Nourished and No Apparent Distress
HEENT: Normocephalic and Atraumatic; Negative Oxygen
Respiratory: Clear to Auscultation; Negative Wheezes or Rhonchi
Cardiac: Regular Rhythm and S1/S2; Negative Murmur
GI: Soft, Nontender, Nondistended and Normal Bowel Sounds
Musculoskeletal: No Clubbing, No Cyanosis and No Edema
Skin: Warm
Neuro: Awake
Psych: Calm
--- NOTE | 2024-11-30 16:49 | ITS.CL.PN ---
Lead Consultant - Procedure Note
Procedure
Procedure Note:
CARDIAC CATHETERIZATION REPORT
Date of Procedure: 11/30/2024
Referring: Dr. Simon Tobar MD
Indication: Preoperative evaluation for severe mitral valve stenosis
PROCEDURE(S)
1. right heart catheterization
2. left heart catheterization
3. coronary angiography
ACCESS
1. 6F right radial artery (closure: radial band)
2. 5F right antecubital vein (closure: manual hemostasis)
CATHETERS
1. 5F [place]
2. 6F JR4
3. 6F JL4
MODERATE SEDATION: 35 minutes of moderate sedation was utilized. An independent chief medical technologist was present to assist with and help manage the patient's level of consciousness and physiologic status.
HEMODYNAMIC DATA
LV 114/9 (EDP 17) mmHg
AO 106/74 (mean 88) mmHg
RA 15 mmHg
RV 59/13 (EDP 17) mmHg
PA 64/37 (mean 46) mmHg
PCWP 35 mmHg
SaO2 87.5%
SvO2 65.0%
Hb 14.3 g/dL
CO/CI 5.95/2.86 L/min/m2
SVR 981 dsc*-5
PVR 1.8 [place] units
CORONARY ANGIOGRAPHY
Dominance: right
LM: long with minimal disease
LAD: large vessel giving rise to a single moderate caliber diagonal. There is mild ISR in a proximal LAD stent and otherwise mild diffuse disease only.
Ramus: moderate caliber branching vessel with mild diffuse disease.
LCx: moderate caliber vessel giving rise to a single moderate caliber OM. There is mild diffuse disease.
RCA: large vessel giving rise to a moderate caliber RPDA, small RPL1, and small RPL2. There is mild diffuse disease.
RADIATION: dose 220 mGy; DAP 16.2 Gy*cm2; fluoroscopy time 2.3 min
CONCLUSIONS
1. Nonobstructive coronary artery disease as described in a right dominant system
2. Hemodynamics with severely elevated pulmonary capillary wedge pressure and mildly elevated LVEDP in keeping with known severe mitral valve stenosis, severe postcapillary pulmonary hypertension, and normal cardiac index.
RECOMMENDATION: Given that the valve leaflets appear to be severely thickened with thrombus on KATI earlier today, we will attempt an initial strategy of anticoagulation with reevaluation of valve morphology and gradients. If no significant response
to the trial of anticoagulation, valve replacement is the only option and we will proceed with percutaneous TMVR if anatomically feasible given high risk for redo surgical MVR.
Copy to: Dr. Simon Tobar MD (ladle filler)
Signed: Javon Ruiz MD, PhD
--- NOTE | 2024-11-30 17:05 | W.PN.CD ---
Today's Communication / Plan
-
heparin over weekend
re-evaluation of valve function next week
aim to maintain current fluid status
Impression / Plan
-
84 year old man with history of mitral valve replacement due to MV endocarditis (2019, ), presenting with hypoxic respiratory failure and found to have severe bioprosthetic MV stenosis.
Subjectively he is mildly short of breath but comfortable.
Since admission he has undergone TTE, KATI, TAVR protocol CT, and right and left heart catheterization. 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 Catheterization demonstrated nonobstructive coronary arteries
with expectedly elevated pulmonary capillary wedge pressure despite normal LVEDP and preserved cardiac output and index. TAVR protocol CT will be analyzed by industry for possible TMVR (new LVOT measurements to determine anatomic feasibility).
Given the possibility that valve thickening and function may improve with anticoagulation, we have initiated heparin drip and will plan to reevaluate valve gradients and morphology next week.
Hx MVR 2019, hx endocarditis:
-TTE: Left ventricle appears small and underfilled. Hyperdynamic LV systolic function. Estimated LVEF 70-75%. Mild aortic stenosis. S/p bio-prosthetic mitral valve replacement. Leaflets appear thickened. Severely elevated gradients. Peak/mean
38/23mmHg. Mild mitral regurgitation. The right ventricular cavity size is mildly enlarged. Normal RV systolic function. Septal flattening consistent with RV pressure overload. Moderate tricuspid regurgitation. Estimated pulmonary artery pressure of
84 mmHg assuming a right atrial pressure of 8 mmHg. Severely elevated PASP
-KATI: 1. Left ventricular ejection fraction is normal. Ejection fraction is 60-65% by visual assessment. D shaped left ventricle in diastole and systole consistent wtih pressure and volume overload.
2. The mitral prosthesis appears to be functioning abnormally.
Homogeneous thickening along the ventricular surface of bioprosthetic mitral valve leaflets resulting in restricted leaflet movement and severe mitral valve stenosis. Peak/Mean Gradient 32/20mmHg.
3. Moderate to severe tricuspid regurgitation with severe pulmonary hypertension.
4. Compared to the prior intraoperative KATI on 10/03/19, there is now severe stenosis of the mitral valve prosthesis.
-CT analysis for TMVR pending
-cath as noted with expected elevation of filling pressures, normal CO/CI, non-obstructive CAD
CAD:
-stable without reports of CP
-stable on cath
-continue ASA, statin
HTN:
-stable, monitor
Abnormal troponin:
-acute, non-ischemic myocardial injury in setting of acute illness
-no reports of CP. Echo as noted. Trend to peak.
Bipolar disorder:
-on medical therapy
Physical Exam
Vital Signs/Labs
Vital Signs
Temp Pulse Resp BP Pulse Ox
36.6 C 100 18 141/92 95
11/30/24 15:00 11/30/24 15:00 11/30/24 15:00 11/30/24 15:00 11/30/24 15:00
11/29/24 11/30/24 12/01/24
06:59 06:59 06:59
Actual Weight 90 kg 90.174 kg
11/30/24 11:29
11/30/24 06:48
APTT 27.0 Sec (23.4-35.0) 11/30/24 11:29
Magnesium 2.0 mg/dl (1.6-2.3) 11/30/24 06:48
11/29/24
02:57
Vhg-N-Auubtcmvnpi Pept 1550
LAB Results
11/29/24 11/29/24 11/29/24
02:57 07:28 12:50
Troponin I 0.101 H* 0.167 H* D 0.128 H*
11/29/24
21:59
Troponin I 0.082 H*
Physical Exam
Constitutional: Comfortable
Cardiovascular: Rhythm & rate is regular
Respiratory: Respiratory effort normal
Neuro/Psych: AO x 3
Data Reviewed
-
Date of Service: November 30, 2024
Medical Decision Making: Reviewed Test Results
EKG: Tracing Personally Visualized and interpreted
Echo: Tracing Personally Visualized and interpreted
X-Ray/CT/US/MRI/NUC/PET: Image Personally Visualized and interpreted
Labs: Labs Reviewed by me
[2024-11-30 18:12] LABS: Glucose - Point of Care 118 mg/dl (70-99)
[2024-11-30] MEDS: MUCINEX 600 MG PO (19:31)
[2024-11-30] MEDS: HEPARIN 25000 UNITS/250 ML IV (20:32)
--- NOTE | 2024-11-30 20:49 | PTCARENOTE ---
assumed care of patient at the change of shift. AAOx3. denies any pain. SR with PVCs noted on tele- 70s-80s. bp stable. R radial band removed-gauze/teg applied. intact. R brachial site intact. reviewed activity restrictions with the patient.
verbalized understanding. nonproductive cough at times. denies sob. heparin gtt started per order. educated patient to inform RN with any changes. call whiting within reach. makes needs known.
[2024-11-30 22:15] LABS: Glucose - Point of Care 106 mg/dl (70-99)
[2024-11-30] MEDS: CRESTOR 40 MG PO (23:46)
[2024-12-01 02:36] VITALS: BP 126/78
[2024-12-01 02:56] LABS: Hematocrit 41.6 % (39.0-52.0); Hemoglobin 14.2 g/dL (13.0-18.0); Mean Corp Hgb Conc. 34.1 g/dL (33.0-37.0); Mean Corpuscular Volume 88.7 fL (80.0-94.0); Platelet Count 201 10^3/uL (130-400); Red Cell Dist. Width 12.7 % (11.5-14.5)
[2024-12-01 03:05] LABS: APTT 47.3 Sec (23.4-35.0)
[2024-12-01 03:18] LABS: Blood Urea Nitrogen 34 mg/dl (9-20); Calcium 9.4 mg/dl (8.4-10.2); Carbon Dioxide 21 mmol/L (22-30); Chloride 110 mmol/L (98-107); Estimated Creatinine Clearance 59 ml/min; Glucose 111 mg/dl (70-99); Magnesium 2.0 mg/dl (1.6-2.3); Potassium 4.4 mmol/L (3.5-5.1); Sodium 137 mmol/L (135-145); eGFR > 60.00
[2024-12-01 07:40] VITALS: BP 119/76
[2024-12-01 07:45] LABS: Glucose - Point of Care 122 mg/dl (70-99)
[2024-12-01] MEDS: MUCINEX 600 MG PO ×2 (07:53→19:33)
[2024-12-01] MEDS: PROSCAR 5 MG PO (07:53)
[2024-12-01] MEDS: ASPIR LOW (ENTERIC COATED) 81 MG PO (07:53)
[2024-12-01] MEDS: NOVOLOG FLEXPEN-LOW RESISTANCE SC ×3 (07:53→17:41)
[2024-12-01] MEDS: VIBRAMYCIN 100 MG PO ×2 (07:53→19:33)
[2024-12-01] MEDS: ESKALITH REGULAR RELEASE 300 MG PO ×3 (08:25→22:05)
[2024-12-01] MEDS: LEXAPRO 5 MG PO (08:47)
[2024-12-01] MEDS: DIOVAN 160 MG PO (08:47)
--- NOTE | 2024-12-01 10:29 | W.PN.CD ---
Today's Communication / Plan
-
Continue IV heparin
Reevaluate mitral valve next week
Impression / Plan
-
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
Subjectively he is mildly short of breath but comfortable.
Since admission he has undergone TTE, KATI, TAVR protocol CT, and right and left heart catheterization. 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 Catheterization demonstrated nonobstructive coronary arteries
with expectedly elevated pulmonary capillary wedge pressure despite normal LVEDP and preserved cardiac output and index. TAVR protocol CT will be analyzed by industry for possible TMVR (new LVOT measurements to determine anatomic feasibility).
Given the possibility that valve thickening and function may improve with anticoagulation, we have initiated heparin drip and will plan to reevaluate valve gradients and morphology next week.
Hx MVR 2019, hx endocarditis:
-TTE: Left ventricle appears small and underfilled. Hyperdynamic LV systolic function. Estimated LVEF 70-75%. Mild aortic stenosis. S/p bio-prosthetic mitral valve replacement. Leaflets appear thickened. Severely elevated gradients. Peak/mean
38/23mmHg. Mild mitral regurgitation. The right ventricular cavity size is mildly enlarged. Normal RV systolic function. Septal flattening consistent with RV pressure overload. Moderate tricuspid regurgitation. Estimated pulmonary artery pressure of
84 mmHg assuming a right atrial pressure of 8 mmHg. Severely elevated PASP
-KATI: 1. Left ventricular ejection fraction is normal. Ejection fraction is 60-65% by visual assessment. D shaped left ventricle in diastole and systole consistent wtih pressure and volume overload.
2. The mitral prosthesis appears to be functioning abnormally.
Homogeneous thickening along the ventricular surface of bioprosthetic mitral valve leaflets resulting in restricted leaflet movement and severe mitral valve stenosis. Peak/Mean Gradient 32/20mmHg.
3. Moderate to severe tricuspid regurgitation with severe pulmonary hypertension.
4. Compared to the prior intraoperative KATI on 10/03/19, there is now severe stenosis of the mitral valve prosthesis.
-CT analysis for TMVR pending
-cath as noted with expected elevation of filling pressures, normal CO/CI, non-obstructive CAD
CAD:
-stable without reports of CP
-stable on cath
-continue ASA, statin
HTN:
-stable, monitor
Abnormal troponin:
-acute, non-ischemic myocardial injury in setting of acute illness
-no reports of CP. Echo as noted. Peaked at 0.167.
Bipolar disorder:
-on medical therapy
Subjective: Feels well but has mostly been in bed. No cardiovascular complaints.
Telemetry unremarkable
Physical Exam
Vital Signs/Labs
Vital Signs
Temp Pulse Resp BP Pulse Ox
98.2 F 95 18 119/76 95
12/01/24 07:37 12/01/24 08:00 12/01/24 07:37 12/01/24 07:40 12/01/24 07:37
11/30/24 12/01/24 12/02/24
06:59 06:59 06:59
Actual Weight 198 lb 12.8 oz
12/01/24 02:31
12/01/24 02:31
APTT 47.3 Sec (23.4-35.0) H 12/01/24 02:31
Magnesium 2.0 mg/dl (1.6-2.3) 12/01/24 02:31
11/29/24
02:57
Cpo-X-Llnhnydfvmy Pept 1550
LAB Results
11/29/24 11/29/24 11/29/24
02:57 07:28 12:50
Troponin I 0.101 H* 0.167 H* D 0.128 H*
11/29/24
21:59
Troponin I 0.082 H*
Physical Exam
Constitutional: No acute distress and Comfortable
Cardiovascular: Rhythm & rate is regular, Pedal edema is absent and Diastolic murmur present
Respiratory: Respiratory effort normal and Lungs clear to auscul.
Neuro/Psych: AO x 3
Other: Cath Site (soft, no swelling or erythema)
Data Reviewed
-
Date of Service: December 01, 2024
Medical Decision Making: Reviewed Test Results, Test Interpretation and Review of Case with other Provider
EKG: Tracing Personally Visualized and interpreted
Echo: Report Reviewed by me
Labs: Labs Reviewed by me
[2024-12-01] MEDS: ROCEPHIN 1000 MG IV (10:44)
[2024-12-01] MEDS: STERILE WATER FOR INJECTION 10 ML IV (10:44)
--- NOTE | 2024-12-01 11:08 | W.PN.HOSP.TC ---
Today's Communication/Plan
-
see plan
Assessment / Plan
Assessment / Plan
Gen: NAD, AAOx3.
Eyes: EOMI, PERRLA, no scleral icterus.
Neck: supple.
CV: RRR, +S1/S2, no m/r/g.
Resp: CTAB, no rales, wheezes, or rhonchi.
Abd: +BS, soft, NT, ND
Skin: No rashes.
Neuro: CN 2-12 intact, non-focal.
Psych: Normal mood and affect.
CXR 11/29: Congestive heart failure.
KATI 11/30:
1. EF 60-65% by visual assessment. D shaped left ventricle in diastole and systole consistent with pressure and volume overload.
2. The mitral prosthesis appears to be functioning abnormally. Homogeneous thickening along the ventricular surface of bioprosthetic mitral valve leaflets resulting in restricted leaflet movement and severe mitral valve stenosis. Peak/Mean Gradient
32/20mmHg.
3. mod-sev TR with sev pulm HTN
4. Compared to the prior intraoperative KATI on 10/03/19, there is now severe stenosis of the mitral valve prosthesis.
RHC/LHC 11/30:
1. Nonobstructive coronary artery disease as described in a right dominant system
2. Hemodynamics with severely elevated pulmonary capillary wedge pressure and mildly elevated LVEDP in keeping with known severe mitral valve stenosis, severe postcapillary pulmonary hypertension, and normal cardiac index.
Acute Hypoxemic Respiratory Failure:
-at this time it appears to be due to severe MV prosthesis stenosis as well as moderate-severe tricuspid regurgitation and severe pulmonary hypertension
-cont heparin gtt with re-eval of MV next week
-discussed with cards
-CT surgery saw in c/s
Recent URI:
-no evidence of PNA at this time and sepsis that was previously documented has been ruled out
-currently on Rocephin/Doxy
-check procal
Other problems:
CAD: cath above, cont ASA/statin
Nonischemic Myocardial Injury
Essential HTN: Cont ARB
Bipolar Disorder: cont [place]/Lexapro
BPH: cont finasteride - Bladder scan protocol.
FULL/heparin gtt
Anticipated Discharge: > 48 hours
Subjective/Interval History
-
Date of Service: December 01, 2024
Denies CP/SOB.
Objective Data
-
Labs:
Laboratory Results
12/01/24 12/01/24
02:31 10:41
WBC 12.1 H
Hgb 14.2
Hct 41.6
Plt Count 201
APTT 47.3 H Pending
Sodium 137
Potassium 4.4
Chloride 110 H
Carbon Dioxide 21 L
BUN 34 H
Creatinine 1.0
Glucose 111 H
Calcium 9.4
Vital Signs:
Vital Signs
Temp Pulse Resp BP Pulse Ox
98.2 F 95 18 119/76 95
12/01/24 07:37 12/01/24 08:00 12/01/24 07:37 12/01/24 07:40 12/01/24 07:37
I&O
11/30/24 12/01/24 12/02/24
06:59 06:59 06:59
Intake Total 480 / 480 930 / 930
Output Total 250 / 250
Balance 230 / 230 930 / 930
[2024-12-01 11:17] LABS: APTT 46.3 Sec (23.4-35.0)
[2024-12-01] MEDS: HEPARIN 25000 UNITS/250 ML IV (11:25)
[2024-12-01 11:34] VITALS: BP 124/84
[2024-12-01 12:40] LABS: Procalcitonin < 0.05 ng/ml (0.0-0.25)
[2024-12-01 12:56] LABS: Glucose - Point of Care 100 mg/dl (70-99)
[2024-12-01 17:24] VITALS: BP 129/78
[2024-12-01 17:41] LABS: Glucose - Point of Care 90 mg/dl (70-99)
[2024-12-01 18:42] LABS: APTT 83.3 Sec (23.4-35.0)
[2024-12-01 19:29] VITALS: BP 116/74
[2024-12-01 20:03] VITALS: BP 115/73
--- NOTE | 2024-12-01 20:59 | PTCARENOTE ---
assumed care of patient at the change of shift. AAOx3. denies any pain. improved dyspnea per patient- states having some with activity in the room. SR on tele with PVCs 70s. heparin gtt infusing per protocol. R radial/R brachial cath sites intact.
removed dressings. reviewed plan of care with patient. independent in the room. calls appropriately.
[2024-12-01] MEDS: CRESTOR 40 MG PO (22:05)
[2024-12-01 22:09] LABS: Glucose - Point of Care 87 mg/dl (70-99)
[2024-12-02 00:13] VITALS: BP 142/79
[2024-12-02 00:52] LABS: APTT 104.5 Sec (23.4-35.0)
[2024-12-02] MEDS: HEPARIN 25000 UNITS/250 ML IV ×2 (01:01→14:59)
[2024-12-02 05:24] VITALS: BP 136/79
[2024-12-02 05:27] VITALS: BMI 28.0
[2024-12-02 06:24] LABS: Hematocrit 39.7 % (39.0-52.0); Hemoglobin 13.3 g/dL (13.0-18.0); Mean Corp Hgb Conc. 33.5 g/dL (33.0-37.0); Mean Corpuscular Volume 88.2 fL (80.0-94.0); Platelet Count 184 10^3/uL (130-400); Red Cell Dist. Width 12.7 % (11.5-14.5)
[2024-12-02 07:08] LABS: APTT 107.3 Sec (23.4-35.0)
[2024-12-02] MEDS: NOVOLOG FLEXPEN-LOW RESISTANCE SC ×3 (08:10→17:22)
[2024-12-02] MEDS: MUCINEX 600 MG PO ×2 (08:17→19:33)
[2024-12-02] MEDS: PROSCAR 5 MG PO (08:17)
[2024-12-02] MEDS: ESKALITH REGULAR RELEASE 300 MG PO ×3 (08:17→21:44)
[2024-12-02] MEDS: VIBRAMYCIN 100 MG PO (08:17)
[2024-12-02] MEDS: ASPIR LOW (ENTERIC COATED) 81 MG PO (08:17)
[2024-12-02] MEDS: LEXAPRO 5 MG PO (08:18)
[2024-12-02] MEDS: DIOVAN 160 MG PO (08:32)
--- NOTE | 2024-12-02 10:28 | W.PN.CD ---
Today's Communication / Plan
-
Continue IV heparin with therapeutic PTTs for 1 week
Reevaluate mitral valve gradients next week
Impression / Plan
-
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
Subjectively he is mildly short of breath but comfortable.
Since admission he has undergone TTE, KATI, TAVR protocol CT, and right and left heart catheterization. 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 Catheterization demonstrated nonobstructive coronary arteries
with expectedly elevated pulmonary capillary wedge pressure despite normal LVEDP and preserved cardiac output and index. TAVR protocol CT will be analyzed by industry for possible TMVR (new LVOT measurements to determine anatomic feasibility).
Given the possibility that valve thickening and function may improve with anticoagulation, we have initiated heparin drip and will plan to reevaluate valve gradients and morphology next week. Heparin infusion requires frequent monitoring of labs
and exam.
Hx MVR 2019, hx endocarditis:
-TTE: Left ventricle appears small and underfilled. Hyperdynamic LV systolic function. Estimated LVEF 70-75%. Mild aortic stenosis. S/p bio-prosthetic mitral valve replacement. Leaflets appear thickened. Severely elevated gradients. Peak/mean
38/23mmHg. Mild mitral regurgitation. The right ventricular cavity size is mildly enlarged. Normal RV systolic function. Septal flattening consistent with RV pressure overload. Moderate tricuspid regurgitation. Estimated pulmonary artery pressure of
84 mmHg assuming a right atrial pressure of 8 mmHg. Severely elevated PASP
-KATI: 1. Left ventricular ejection fraction is normal. Ejection fraction is 60-65% by visual assessment. D shaped left ventricle in diastole and systole consistent wtih pressure and volume overload.
2. The mitral prosthesis appears to be functioning abnormally.
Homogeneous thickening along the ventricular surface of bioprosthetic mitral valve leaflets resulting in restricted leaflet movement and severe mitral valve stenosis. Peak/Mean Gradient 32/20mmHg.
3. Moderate to severe tricuspid regurgitation with severe pulmonary hypertension.
4. Compared to the prior intraoperative KATI on 10/03/19, there is now severe stenosis of the mitral valve prosthesis.
-CT analysis for TMVR pending
-cath as noted with expected elevation of filling pressures, normal CO/CI, non-obstructive CAD
CAD:
-stable without reports of CP
-stable on cath
-continue ASA, statin
HTN:
-stable, monitor
Abnormal troponin:
-acute, non-ischemic myocardial injury in setting of acute illness
-no reports of CP. Echo as noted. Peaked at 0.167.
Bipolar disorder:
-on medical therapy
Subjective: Shortness of breath has improved. Has been walking laps in the hallway. Has some lightheadedness which has been ongoing for at least 6 months.
Physical Exam
Vital Signs/Labs
Vital Signs
Temp Pulse Resp BP Pulse Ox
97.8 F 86 22 136/79 97
12/02/24 05:27 12/02/24 09:00 12/02/24 05:27 12/02/24 05:24 12/02/24 05:27
12/01/24 12/02/24 12/03/24
06:59 06:59 06:59
Actual Weight 195 lb 5.273 oz
12/02/24 05:54
12/01/24 02:31
APTT 107.3 Sec (23.4-35.0) H 12/02/24 05:54
Magnesium 2.0 mg/dl (1.6-2.3) 12/01/24 02:31
11/29/24
02:57
Xow-Z-Awcbihvcmsy Pept 1550
LAB Results
11/29/24 11/29/24
12:50 21:59
Troponin I 0.128 H* 0.082 H*
Physical Exam
Constitutional: No acute distress and Comfortable
Cardiovascular: Rhythm & rate is regular, Pedal edema is absent, Diastolic murmur present and S1S2 is normal
Respiratory: Respiratory effort normal and Other (Decreased breath sounds at bilateral bases)
Neuro/Psych: AO x 3
Data Reviewed
-
Date of Service: December 02, 2024
Medical Decision Making: Reviewed Test Results, Test Interpretation and Review of Case with other Provider
EKG: Tracing Personally Visualized and interpreted
Echo: Report Reviewed by me
Labs: Labs Reviewed by me
--- NOTE | 2024-12-02 10:45 | W.PN.HOSP.TC ---
Today's Communication/Plan
-
see plan
Assessment / Plan
Assessment / Plan
Gen: NAD, AAOx3.
Eyes: EOMI, PERRLA, no scleral icterus.
Neck: supple.
CV: remains RRR, +S1/S2, no m/r/g.
Resp: remains CTAB, no rales, wheezes, or rhonchi.
Abd: remains +BS, soft, NT, ND
Skin: No rashes.
Neuro: CN 2-12 intact, non-focal.
Psych: Normal mood and affect.
CXR 11/29: Congestive heart failure.
KATI 11/30:
1. EF 60-65% by visual assessment. D shaped left ventricle in diastole and systole consistent with pressure and volume overload.
2. The mitral prosthesis appears to be functioning abnormally. Homogeneous thickening along the ventricular surface of bioprosthetic mitral valve leaflets resulting in restricted leaflet movement and severe mitral valve stenosis. Peak/Mean Gradient
32/20mmHg.
3. mod-sev TR with sev pulm HTN
4. Compared to the prior intraoperative KATI on 10/03/19, there is now severe stenosis of the mitral valve prosthesis.
RHC/LHC 11/30:
1. Nonobstructive coronary artery disease as described in a right dominant system
2. Hemodynamics with severely elevated pulmonary capillary wedge pressure and mildly elevated LVEDP in keeping with known severe mitral valve stenosis, severe postcapillary pulmonary hypertension, and normal cardiac index.
Acute Hypoxemic Respiratory Failure:
-at this time it appears to be due to severe MV prosthesis stenosis as well as moderate-severe tricuspid regurgitation and severe pulmonary hypertension
-cont heparin gtt with re-eval of MV next week
-discussed with cards
-CT surgery saw in c/s
Recent URI:
-no evidence of PNA at this time and sepsis that was previously documented sepsis and PNA have been ruled out
-currently on Rocephin/Doxy which will be stopped with NEG procal
Other problems:
CAD: cath above, cont ASA/statin
Nonischemic Myocardial Injury
Essential HTN: Cont ARB
Bipolar Disorder: cont [place]/Lexapro
BPH: cont finasteride
FULL/heparin gtt
Anticipated Discharge: > 48 hours
Subjective/Interval History
-
Date of Service: December 02, 2024
No new complaints.
Objective Data
-
Labs:
Laboratory Results
12/02/24 12/02/24
00:18 05:54
WBC 9.0
Hgb 13.3
Hct 39.7
Plt Count 184
APTT 104.5 H 107.3 H
Vital Signs:
Vital Signs
Temp Pulse Resp BP Pulse Ox
97.8 F 86 22 136/79 97
12/02/24 05:27 12/02/24 09:00 12/02/24 05:27 12/02/24 05:24 12/02/24 05:27
I&O
12/01/24 12/02/24 12/03/24
06:59 06:59 06:59
Intake Total 930 / 930 1170 / 1170
Balance 930 / 930 1170 / 1170
[2024-12-02] MEDS: STERILE WATER FOR INJECTION IV (10:55)
[2024-12-02] MEDS: ROCEPHIN IV (10:55)
[2024-12-02 12:08] LABS: Glucose - Point of Care 108 mg/dl (70-99)
[2024-12-02 13:20] VITALS: BP 106/70
--- NOTE | 2024-12-02 14:03 | PTCARENOTE ---
Assumed care at 0700. Patient walking in hallways, gait is steady. Heparin gtt per MAY. Shortness of breath with exertion improving. VSS, call whiting in reach
[2024-12-02 15:42] VITALS: BP 134/74
[2024-12-02 17:11] LABS: Glucose - Point of Care 92 mg/dl (70-99)
[2024-12-02 18:46] VITALS: BP 121/69
[2024-12-02] MEDS: CRESTOR 40 MG PO (21:44)
[2024-12-02 22:03] VITALS: BP 136/72
[2024-12-02 22:06] LABS: Glucose - Point of Care 111 mg/dl (70-99)
[2024-12-03] VITALS (7 sets, daily range): BP systolic 112–134; BP diastolic 64–109; BMI 28.1
--- NOTE | 2024-12-03 00:09 | PTCARENOTE ---
Received patient at change of shift. SR with a first degree on the monitor, HR in the 60s. Heparin running as per protocol, see documentation. R radial and R brachial sites CONFERENCE INTERPRETER, intact. No complaints from pt at this time, call whiting within reach.
[2024-12-03 02:31] LABS: APTT 126.0 Sec (23.4-35.0)
[2024-12-03] MEDS: HEPARIN 25000 UNITS/250 ML IV ×2 (04:52→18:57)
[2024-12-03 07:29] LABS: Glucose - Point of Care 113 mg/dl (70-99)
[2024-12-03] MEDS: NOVOLOG FLEXPEN-LOW RESISTANCE SC ×3 (07:40→17:45)
--- NOTE | 2024-12-03 08:13 | PTCARENOTE ---
Assumed care of pt from prev nsg shift; Pt AAOx3 w/no c/o CP or SOB. Pt w/VSS w/HR in the 80's & BP 112/67 this AM. Pt is SR w/1st deg AVB on telemetry monitoring. Pt has a Heparin IV drip infusing as ordered through a patent IV line. R radial & R
brachial sites MEDICAL PSYCHOTHERAPIST w/no signs or symptoms of bleeding or hematomas. Pt w/call whiting within reach & plan of care ongoing.
[2024-12-03] MEDS: ESKALITH REGULAR RELEASE 300 MG PO ×3 (09:40→22:14)
[2024-12-03] MEDS: PROSCAR 5 MG PO (09:40)
[2024-12-03] MEDS: DIOVAN 160 MG PO (09:40)
[2024-12-03] MEDS: ASPIR LOW (ENTERIC COATED) 81 MG PO (09:40)
[2024-12-03] MEDS: MUCINEX 600 MG PO ×2 (09:40→19:22)
[2024-12-03] MEDS: LEXAPRO 5 MG PO (09:40)
--- NOTE | 2024-12-03 09:52 | W.PN.CD ---
Addendum entered and electronically signed by Norm Tobar MD 12/03/24 10:04:
Will need to monitor [place] levels while on Lasix given significant possible interaction,
Plan [place] levels in 2 and 4 weeks.
Original Note:
Today's Communication / Plan
-
IV heparin
Echo in AM
Add Beta cruz to increase diastolic filling time
Tomorrow may move to Eliquis and plan 30 days of Eliquis and then recheck MV gradient
Impression / Plan
-
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
Subjectively he is mildly short of breath but comfortable.
Since admission he has undergone TTE, KATI, TAVR protocol CT, and right and left heart catheterization. 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 Catheterization demonstrated nonobstructive coronary arteries
with expectedly elevated pulmonary capillary wedge pressure despite normal LVEDP and preserved cardiac output and index. TAVR protocol CT will be analyzed by industry for possible TMVR (new LVOT measurements to determine anatomic feasibility).
Given the possibility that valve thickening and function may improve with anticoagulation, we have initiated heparin drip and will plan to reevaluate valve gradients and morphology next week. Heparin infusion requires frequent monitoring of labs
and exam.
Hx MVR 2019, hx endocarditis:
-TTE: Left ventricle appears small and underfilled. Hyperdynamic LV systolic function. Estimated LVEF 70-75%. Mild aortic stenosis. S/p bio-prosthetic mitral valve replacement. Leaflets appear thickened. Severely elevated gradients. Peak/mean
38/23mmHg. Mild mitral regurgitation. The right ventricular cavity size is mildly enlarged. Normal RV systolic function. Septal flattening consistent with RV pressure overload. Moderate tricuspid regurgitation. Estimated pulmonary artery pressure of
84 mmHg assuming a right atrial pressure of 8 mmHg. Severely elevated PASP
-KATI: 1. Left ventricular ejection fraction is normal. Ejection fraction is 60-65% by visual assessment. D shaped left ventricle in diastole and systole consistent wtih pressure and volume overload.
2. The mitral prosthesis appears to be functioning abnormally.
Homogeneous thickening along the ventricular surface of bioprosthetic mitral valve leaflets resulting in restricted leaflet movement and severe mitral valve stenosis. Peak/Mean Gradient 32/20mmHg.
3. Moderate to severe tricuspid regurgitation with severe pulmonary hypertension.
4. Compared to the prior intraoperative KATI on 10/03/19, there is now severe stenosis of the mitral valve prosthesis.
-CT analysis for TMVR pending
-cath as noted with expected elevation of filling pressures, normal CO/CI, non-obstructive CAD
CAD:
-stable without reports of CP
-stable on cath
-continue ASA, statin
HTN:
-stable, monitor
Abnormal troponin:
-acute, non-ischemic myocardial injury in setting of acute illness
-no reports of CP. Echo as noted. Peaked at 0.167.
Bipolar disorder:
-on medical therapy
Subjective: Shortness of breath has improved. Has been walking laps in the hallway. Has some lightheadedness which has been ongoing for at least 6 months.
Physical Exam
Vital Signs/Labs
Vital Signs
Temp Pulse Resp BP Pulse Ox
98.3 F 82 18 112/67 98
12/03/24 07:13 12/03/24 07:09 12/03/24 07:13 12/03/24 07:09 12/03/24 07:13
12/02/24 12/03/24 12/04/24
06:59 06:59 06:59
Actual Weight 88.6 kg 88.9 kg
12/02/24 05:54
12/01/24 02:31
APTT 126.0 Sec (23.4-35.0) H 12/03/24 02:12
Magnesium 2.0 mg/dl (1.6-2.3) 12/01/24 02:31
11/29/24
02:57
Dkk-Y-Ajtgeuynxra Pept 1550
Physical Exam
Constitutional: No acute distress
EENT: Anicteric
Cardiovascular: Rhythm & rate is regular, Pedal edema is absent and Systolic murmur present
Respiratory: Respiratory effort normal
GI: Soft
Neuro/Psych: Alert
Data Reviewed
-
Date of Service: December 03, 2024
--- NOTE | 2024-12-03 09:59 | W.PN.HOSP.TC ---
Today's Communication/Plan
-
see plan
Assessment / Plan
Assessment / Plan
Gen: NAD, AAOx3.
Eyes: EOMI, PERRLA, no scleral icterus.
Neck: supple.
CV: continues to remain RRR, +S1/S2, no m/r/g.
Resp: continues to remain CTAB, no rales, wheezes, or rhonchi.
Abd: continues to remain +BS, soft, NT, ND
Skin: No rashes.
Neuro: CN 2-12 intact, non-focal.
Psych: Normal mood and affect.
CXR 11/29: Congestive heart failure.
KATI 11/30:
1. EF 60-65% by visual assessment. D shaped left ventricle in diastole and systole consistent with pressure and volume overload.
2. The mitral prosthesis appears to be functioning abnormally. Homogeneous thickening along the ventricular surface of bioprosthetic mitral valve leaflets resulting in restricted leaflet movement and severe mitral valve stenosis. Peak/Mean Gradient
32/20mmHg.
3. mod-sev TR with sev pulm HTN
4. Compared to the prior intraoperative KATI on 10/03/19, there is now severe stenosis of the mitral valve prosthesis.
RHC/LHC 11/30:
1. Nonobstructive coronary artery disease as described in a right dominant system
2. Hemodynamics with severely elevated pulmonary capillary wedge pressure and mildly elevated LVEDP in keeping with known severe mitral valve stenosis, severe postcapillary pulmonary hypertension, and normal cardiac index.
Acute Hypoxemic Respiratory Failure:
-at this time it appears to be due to severe MV prosthesis stenosis as well as moderate-severe tricuspid regurgitation and severe pulmonary hypertension
-cont heparin gtt for today, likely switch to eliquis tomorrow.
-check echo tomorrow
-start BB and low dose lasix
-discussed with cards (Keren Tobar and Joseph)
-CT surgery saw in c/s
Recent URI:
-no evidence of PNA at this time and sepsis that was previously documented sepsis and PNA have been ruled out
-Rocephin/Doxy stopped with NEG procal
Other problems:
CAD: cath above, cont ASA/statin
Nonischemic Myocardial Injury
Essential HTN: Cont ARB, starting BB
Bipolar Disorder: cont [place]/Lexapro
BPH: cont finasteride
FULL/heparin gtt
Anticipated Discharge: Within 24 hours
Subjective/Interval History
-
Date of Service: December 03, 2024
No new complaints. Still with some SOB.
Objective Data
-
Labs:
Laboratory Results
12/03/24 12/03/24
02:12 09:35
APTT 126.0 H Pending
Vital Signs:
Vital Signs
Temp Pulse Resp BP Pulse Ox
98.3 F 82 18 112/67 98
12/03/24 07:13 12/03/24 07:09 12/03/24 07:13 12/03/24 07:09 12/03/24 07:13
I&O
12/02/24 12/03/24 12/04/24
06:59 06:59 06:59
Intake Total 1170 / 1170
Balance 1170 / 1170
[2024-12-03 10:03] LABS: APTT 100.1 Sec (23.4-35.0)
[2024-12-03] MEDS: TOPROL XL 50 MG PO (11:05)
[2024-12-03] MEDS: LASIX 20 MG PO (11:05)
[2024-12-03 12:09] LABS: Glucose - Point of Care 77 mg/dl (70-99)
--- NOTE | 2024-12-03 14:25 | CM ---
Pricing on Eliquis through the patient's [facility] is $141 for a 30 day supply. Patient is agreeable to cost. I placed a free 30 day coupon in the pateint's red discharge folder.
--- NOTE | 2024-12-03 14:26 | CM ---
Chart reviewed. Patient's and daughter at bedside. Patient is independent of ADLS, lives with his in a [address], [address] [facility], ambulate occasionally with a SPC. Plan is for the patient to return home. CM to follow
[2024-12-03 16:57] LABS: Glucose - Point of Care 155 mg/dl (70-99)
[2024-12-03 18:38] LABS: APTT 102.6 Sec (23.4-35.0)
[2024-12-03 22:09] LABS: Glucose - Point of Care 102 mg/dl (70-99)
[2024-12-03] MEDS: CRESTOR 40 MG PO (22:14)
--- NOTE | 2024-12-03 23:39 | PTCARENOTE ---
Received patient at change of shift. SR with a first degree on the monitor, HR in the 60s. Heparin running as per protocol, see documentation. R radial and R brachial sites DAY WORKER, intact. No complaints from pt at this time, call whiting within reach.
[2024-12-04 02:47] VITALS: BP 141/68
[2024-12-04 02:58] VITALS: BMI 27.9
[2024-12-04 03:02] LABS: Hematocrit 39.0 % (39.0-52.0); Hemoglobin 13.5 g/dL (13.0-18.0); Mean Corp Hgb Conc. 34.6 g/dL (33.0-37.0); Mean Corpuscular Volume 88.2 fL (80.0-94.0); Platelet Count 204 10^3/uL (130-400); Red Cell Dist. Width 12.4 % (11.5-14.5)
[2024-12-04 03:17] LABS: APTT 125.2 Sec (23.4-35.0)
[2024-12-04 03:57] LABS: Blood Urea Nitrogen 25 mg/dl (9-20); Calcium 9.6 mg/dl (8.4-10.2); Carbon Dioxide 21 mmol/L (22-30); Chloride 110 mmol/L (98-107); Estimated Creatinine Clearance 53 ml/min; Glucose 104 mg/dl (70-99); Magnesium 2.1 mg/dl (1.6-2.3); Potassium 4.5 mmol/L (3.5-5.1); Sodium 136 mmol/L (135-145); eGFR > 60.00
[2024-12-04 07:12] LABS: Glucose - Point of Care 101 mg/dl (70-99)
[2024-12-04 07:14] VITALS: BP 148/73
--- NOTE | 2024-12-04 08:00 | PTCARENOTE ---
Assumed care of pt from prev nsg shift; Pt AAOx3 w/no c/o CP or SOB. Pt w/VSS w/HR in the 50's & BP 148/73 this AM. Pt is SR w/1st deg AVB & BBB on telemetry monitoring. Pt has a Heparin IV drip infusing as ordered through a patent IV line. R radial
& R brachial sites SAMPLE EXAMINER w/no signs or symptoms of bleeding or hematomas. Pt anious for D/C today, awaiting ECHO this AM. Pt w/call whiting within reach & plan of care ongoing.
--- NOTE | 2024-12-04 08:29 | W.PN.CD ---
Today's Communication / Plan
-
echo today, pending results likely d/c on eliquis with 1 month interval echo follow up
Impression / Plan
-
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
Subjectively he is mildly short of breath but comfortable.
Since admission he has undergone TTE, KATI, TAVR protocol CT, and right and left heart catheterization. 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 Catheterization demonstrated nonobstructive coronary arteries
with expectedly elevated pulmonary capillary wedge pressure despite normal LVEDP and preserved cardiac output and index. TAVR protocol CT will be analyzed by industry for possible TMVR (new LVOT measurements to determine anatomic feasibility).
Given the possibility that valve thickening and function may improve with anticoagulation, we have initiated heparin drip and will plan to reevaluate valve gradients today and then again in 1 month of anticoag therapy. Will plan to likely transition
to [facility] after echo today and then discharge with 1 month follow up echo. Heparin infusion requires frequent monitoring of labs and exam.
Hx MVR 2019, hx endocarditis:
-TTE: Left ventricle appears small and underfilled. Hyperdynamic LV systolic function. Estimated LVEF 70-75%. Mild aortic stenosis. S/p bio-prosthetic mitral valve replacement. Leaflets appear thickened. Severely elevated gradients. Peak/mean
38/23mmHg. Mild mitral regurgitation. The right ventricular cavity size is mildly enlarged. Normal RV systolic function. Septal flattening consistent with RV pressure overload. Moderate tricuspid regurgitation. Estimated pulmonary artery pressure of
84 mmHg assuming a right atrial pressure of 8 mmHg. Severely elevated PASP
-KATI: 1. Left ventricular ejection fraction is normal. Ejection fraction is 60-65% by visual assessment. D shaped left ventricle in diastole and systole consistent wtih pressure and volume overload.
2. The mitral prosthesis appears to be functioning abnormally.
Homogeneous thickening along the ventricular surface of bioprosthetic mitral valve leaflets resulting in restricted leaflet movement and severe mitral valve stenosis. Peak/Mean Gradient 32/20mmHg.
3. Moderate to severe tricuspid regurgitation with severe pulmonary hypertension.
4. Compared to the prior intraoperative KATI on 10/03/19, there is now severe stenosis of the mitral valve prosthesis.
-CT analysis for TMVR suggests adaquate belia LVOT for TMVR (Mauro [address]) if needed
-cath as noted with expected elevation of filling pressures, normal CO/CI, non-obstructive CAD
CAD:
-stable without reports of CP
-stable on cath
-continue ASA, statin
HTN:
-stable, monitor
Abnormal troponin:
-acute, non-ischemic myocardial injury in setting of acute illness
-no reports of CP. Echo as noted. Peaked at 0.167.
Bipolar disorder:
-on medical therapy
Subjective: Shortness of breath has improved. Has been walking laps in the hallway. Has some lightheadedness which has been ongoing for at least 6 months.
Physical Exam
Vital Signs/Labs
Vital Signs
Temp Pulse Resp BP Pulse Ox
36.7 C 54 18 148/73 95
12/04/24 07:14 12/04/24 07:14 12/04/24 07:14 12/04/24 07:14 12/04/24 07:14
12/03/24 12/04/24 12/05/24
06:59 06:59 06:59
Actual Weight 88.9 kg 88.1 kg
12/04/24 02:54
12/04/24 02:54
APTT 125.2 Sec (23.4-35.0) H 12/04/24 02:54
Magnesium 2.1 mg/dl (1.6-2.3) 12/04/24 02:54
11/29/24
02:57
Rlq-Y-Hqhknzybdet Pept 1550
Physical Exam
Constitutional: Comfortable
Cardiovascular: Rhythm & rate is regular
Respiratory: Respiratory effort normal
Neuro/Psych: AO x 3
Data Reviewed
-
Date of Service: December 04, 2024
Medical Decision Making: Reviewed Test Results
EKG: Tracing Personally Visualized and interpreted
Echo: Tracing Personally Visualized and interpreted
Labs: Labs Reviewed by me
[2024-12-04] MEDS: NOVOLOG FLEXPEN-LOW RESISTANCE SC ×2 (08:37→12:48)
[2024-12-04] MEDS: LASIX 20 MG PO (09:28)
[2024-12-04] MEDS: TOPROL XL 50 MG PO (09:28)
[2024-12-04] MEDS: MUCINEX 600 MG PO (09:28)
[2024-12-04] MEDS: ESKALITH REGULAR RELEASE 300 MG PO (09:28)
[2024-12-04] MEDS: PROSCAR 5 MG PO (09:28)
[2024-12-04] MEDS: LEXAPRO 5 MG PO (09:28)
[2024-12-04] MEDS: DIOVAN 160 MG PO (09:28)
[2024-12-04] MEDS: ASPIR LOW (ENTERIC COATED) 81 MG PO (09:28)
--- NOTE | 2024-12-04 09:31 | W.PN.HOSP.TC ---
Addendum entered and electronically signed by Aravind Sheriff MD 12/04/24 12:08:
.
Original Note:
Today's Communication/Plan
-
d/c today
Assessment / Plan
Assessment / Plan
Gen: NAD, AAOx3.
Eyes: EOMI, PERRLA, no scleral icterus.
Neck: supple.
CV: continues to remain RRR, +S1/S2, no m/r/g.
Resp: continues to remain CTAB, no rales, wheezes, or rhonchi.
Abd: continues to remain +BS, soft, NT, ND
Skin: No rashes.
Neuro: CN 2-12 intact, non-focal.
Psych: Normal mood and affect.
CXR 11/29: Congestive heart failure.
KATI 11/30:
1. EF 60-65% by visual assessment. D shaped left ventricle in diastole and systole consistent with pressure and volume overload.
2. The mitral prosthesis appears to be functioning abnormally. Homogeneous thickening along the ventricular surface of bioprosthetic mitral valve leaflets resulting in restricted leaflet movement and severe mitral valve stenosis. Peak/Mean Gradient
32/20mmHg.
3. mod-sev TR with sev pulm HTN
4. Compared to the prior intraoperative KATI on 10/03/19, there is now severe stenosis of the mitral valve prosthesis.
RHC/LHC 11/30:
1. Nonobstructive coronary artery disease as described in a right dominant system
2. Hemodynamics with severely elevated pulmonary capillary wedge pressure and mildly elevated LVEDP in keeping with known severe mitral valve stenosis, severe postcapillary pulmonary hypertension, and normal cardiac index.
Acute Hypoxemic Respiratory Failure:
-at this time it appears to be due to severe MV prosthesis stenosis as well as moderate-severe tricuspid regurgitation and severe pulmonary hypertension
-was on heparin gtt, now transitioned to Eliquis
-started on BB and low dose lasix
-discussed with cards (Keren Tobar) and the pt has been medically cleared for d/c (likely getting echo prior to d/c)
-CT surgery saw in c/s
Recent URI:
-no evidence of PNA at this time and sepsis that was previously documented sepsis and PNA have been ruled out
-Rocephin/Doxy stopped with NEG procal
Other problems:
CAD: cath above, cont ASA/statin
Nonischemic Myocardial Injury
Essential HTN: Cont ARB/BB
Bipolar Disorder: cont [place]/Lexapro
BPH: cont finasteride
FULL/heparin gtt
Total time spent on d/c = 31 min. This included today's physical exam, progress note, review of laboratory and diagnostic data, preparation of discharge documents and prescriptions, and discussions about the pt's hospital course and discharge plan
with the patient and other certified medical coding specialist involved in the patient's care.
Anticipated Discharge: Today
Subjective/Interval History
-
Date of Service: December 04, 2024
Pt states he's 'tired.' No other complaints.
Objective Data
-
Labs:
Laboratory Results
12/04/24 12/04/24
02:54 10:00
WBC 9.7
Hgb 13.5
Hct 39.0
Plt Count 204
APTT 125.2 H Pending
Sodium 136
Potassium 4.5
Chloride 110 H
Carbon Dioxide 21 L
BUN 25 H
Creatinine 1.1
Glucose 104 H
Calcium 9.6
Vital Signs:
Vital Signs
Temp Pulse Resp BP Pulse Ox
98.0 F 54 18 148/73 95
12/04/24 07:14 12/04/24 07:14 12/04/24 07:14 12/04/24 07:14 12/04/24 07:14
I&O
12/03/24 12/04/24 12/05/24
06:59 06:59 06:59
Intake Total 960 / 960
Output Total 725 / 725
Balance 235 / 235
--- NOTE | 2024-12-04 10:12 | W.PN.CD ---
Today's Communication / Plan
-
Home after echo today
F/u [place] level, BMP and BNP in 1 week
Echo in 30 days
F/u with us after echo and earlier if needed
We will arrange followup
New meds: Eliquis 5 bid, Lasix 20 mg daily, Metoprolol ER 50 mg daily
Impression / Plan
-
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
Subjectively he is mildly short of breath but comfortable.
Since admission he has undergone TTE, KATI, TAVR protocol CT, and right and left heart catheterization. 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 Catheterization demonstrated nonobstructive coronary arteries
with expectedly elevated pulmonary capillary wedge pressure despite normal LVEDP and preserved cardiac output and index. TAVR protocol CT will be analyzed by industry for possible TMVR (new LVOT measurements to determine anatomic feasibility).
Given the possibility that valve thickening and function may improve with anticoagulation, we have initiated heparin drip and will plan to reevaluate valve gradients today and then again in 1 month of anticoag therapy. Will plan to likely transition
to eliquis after echo today and then discharge with 1 month follow up echo. Heparin infusion requires frequent monitoring of labs and exam.
Hx MVR 2019, hx endocarditis:
-TTE: Left ventricle appears small and underfilled. Hyperdynamic LV systolic function. Estimated LVEF 70-75%. Mild aortic stenosis. S/p bio-prosthetic mitral valve replacement. Leaflets appear thickened. Severely elevated gradients. Peak/mean
38/23mmHg. Mild mitral regurgitation. The right ventricular cavity size is mildly enlarged. Normal RV systolic function. Septal flattening consistent with RV pressure overload. Moderate tricuspid regurgitation. Estimated pulmonary artery pressure of
84 mmHg assuming a right atrial pressure of 8 mmHg. Severely elevated PASP
-KATI: 1. Left ventricular ejection fraction is normal. Ejection fraction is 60-65% by visual assessment. D shaped left ventricle in diastole and systole consistent wtih pressure and volume overload.
2. The mitral prosthesis appears to be functioning abnormally.
Homogeneous thickening along the ventricular surface of bioprosthetic mitral valve leaflets resulting in restricted leaflet movement and severe mitral valve stenosis. Peak/Mean Gradient 32/20mmHg.
3. Moderate to severe tricuspid regurgitation with severe pulmonary hypertension.
4. Compared to the prior intraoperative KATI on 10/03/19, there is now severe stenosis of the mitral valve prosthesis.
-CT analysis for TMVR suggests adaquate belia LVOT for TMVR (Mauro 29 Laura) if needed
-cath as noted with expected elevation of filling pressures, normal CO/CI, non-obstructive CAD
CAD:
-stable without reports of CP
-stable on cath
-continue ASA, statin
HTN:
-stable, monitor
Abnormal troponin:
-acute, non-ischemic myocardial injury in setting of acute illness
-no reports of CP. Echo as noted. Peaked at 0.167.
Bipolar disorder:
-on medical therapy
Subjective: Shortness of breath has improved. No CP.
Physical Exam
Vital Signs/Labs
Vital Signs
Temp Pulse Resp BP Pulse Ox
98.0 F 54 18 148/73 95
12/04/24 07:14 12/04/24 07:14 12/04/24 07:14 12/04/24 07:14 12/04/24 07:14
12/03/24 12/04/24 12/05/24
06:59 06:59 06:59
Actual Weight 88.9 kg 88.1 kg
12/04/24 02:54
12/04/24 02:54
APTT 125.2 Sec (23.4-35.0) H 12/04/24 02:54
Magnesium 2.1 mg/dl (1.6-2.3) 12/04/24 02:54
11/29/24
02:57
Had-Q-Hfiasiencgy Pept 1550
Physical Exam
Constitutional: No acute distress
EENT: Anicteric
Cardiovascular: Rhythm & rate is regular and Pedal edema is absent
Respiratory: Respiratory effort normal and Lungs clear to auscul.
GI: Soft and Distention absent
Neuro/Psych: AO x 3
Data Reviewed
-
Date of Service: December 04, 2024
[2024-12-04] MEDS: HEPARIN 25000 UNITS/250 ML IV (10:51)
--- NOTE | 2024-12-04 10:51 | CM ---
Chart reviewed. Patient is independent of ADLS, lives with his in a [address], [facility], ambulates occasionally with a SPC. Patient is interested in VN. Referral sent to [facility]. Plan is for the patient to return home with [facility]. CM to follow
[2024-12-04 11:00] VITALS: BP 130/71
[2024-12-04 11:24] LABS: APTT 97.6 Sec (23.4-35.0)
--- NOTE | 2024-12-04 12:10 | W.DCSUMMARY ---
Discharge Summary
Discharge Data
Date of Admission: 11/29/24
Date of Discharge: 12/04/24
-
Pending Results: No
Hospital Course
Primary diagnoses:
Acute hypoxemic respiratory failure due to acute severe MV prosthesis stenosis as well as moderate-severe tricuspid regurgitation and severe pulmonary hypertension
Secondary diagnoses:
CAD: cath above, cont ASA/statin
Nonischemic Myocardial Injury
Essential HTN: Cont ARB/BB
Bipolar Disorder: cont [place]/Lexapro
BPH
Consultants:
Cardiology
Cardiothoracic surgery
Imaging:
CXR 11/29: Congestive heart failure.
KATI 11/30:
1. EF 60-65% by visual assessment. D shaped left ventricle in diastole and systole consistent with pressure and volume overload.
2. The mitral prosthesis appears to be functioning abnormally. Homogeneous thickening along the ventricular surface of bioprosthetic mitral valve leaflets resulting in restricted leaflet movement and severe mitral valve stenosis. Peak/Mean Gradient
32/20mmHg.
3. mod-sev TR with sev pulm HTN
4. Compared to the prior intraoperative KATI on 10/03/19, there is now severe stenosis of the mitral valve prosthesis.
RHC/LHC 11/30:
1. Nonobstructive coronary artery disease as described in a right dominant system
2. Hemodynamics with severely elevated pulmonary capillary wedge pressure and mildly elevated LVEDP in keeping with known severe mitral valve stenosis, severe postcapillary pulmonary hypertension, and normal cardiac index.
84-year-old male presented with chief complaint of shortness of breath as outlined in the H&P done on admission. Hospital course per problem was:
Acute Hypoxemic Respiratory Failure: On admission the initial concern was for sepsis due to pneumonia. The patient was placed on antibiotics. His COVID and flu testing were negative. He was initially on mid flow oxygen and was weaned to room air
while hospitalized. On chart review on December 01, 2024 there did not appear to have been any evidence of pneumonia based on imaging (which showed congestive heart failure). Procalcitonin was negative and antibiotics were stopped. It appears
that the patient's acute hypoxemic respiratory failure was due to severe MV prosthesis stenosis as well as moderate-severe tricuspid regurgitation and severe pulmonary hypertension. The patient was evaluated by cardiothoracic surgery and followed
by cardiology. Cardiothoracic surgery felt that the patient's mitral valve appeared thrombosed on KATI. He was on a heparin gtt during hospitalization and is being transitioned to Eliquis on discharge. Beta-cruz and Lasix were started. At this
time the patient is medically cleared for discharge pending echocardiogram being done today.
Discharge Plan
-
Patient Disposition: Home (Routine Discharge)
Discharge Diagnosis/Procedures: Acute Hypoxemic Respiratory Failure due to severe MV prosthesis stenosis as well as moderate-severe tricuspid regurgitation and severe pulmonary hypertension
Condition: Good
Diet: Low Cholesterol, 2 Gram Sodium and Restrict fluids to 48 oz
Activity: As tolerated
Driving Restrictions: As prior to admission
Activity Restrictions/Additional Instructions:
You need a lithium level in 2 weeks, prescription for PCP.
Echocardiogram in 4 weeks.
Referrals:
[facility]Visiting Nurs [Outside]
Jareth Silver MD [Active, Cardiology] - in one month
UNKNOWN - PT NOT,INTERVIEWE [Family Provider]
Prescriptions:
New
metoprolol succinate 50 mg Tablet Extended Release 24 Hr
50 mg PO DAILY Qty: 30 0RF
furosemide 20 mg Tablet
20 mg PO DAILY Qty: 30 0RF
Eliquis 5 mg tablet
5 mg PO BID Qty: 60 0RF
Continued
finasteride 5 MG tablet
5 mg PO DAILY
lithium carbonate 300 MG capsule
300 mg PO TID
Patient Comments:
AM,NOON,PM
aspirin [Aspir-Low] 81 MG tablet,delayed release (DR/EC)
81 mg PO DAILY Qty: 0 0RF
valsartan 160 mg tablet
160 mg PO DAILY
rosuvastatin 40 mg tablet
40 mg PO HS
escitalopram oxalate 5 mg tablet
5 mg PO DAILY
Discharge Orders:
Discharge Patient (As Directed); Ordered 12/04/24
Ordered By: Aravind Sheriff
Discharge Date and Time
Print Language: KAZAKH
[2024-12-04 12:31] LABS: Glucose - Point of Care 81 mg/dl (70-99)
[2024-12-04 14:52] VITALS: BP 125/62
--- NOTE | 2024-12-04 14:52 | W.PN.UPDATE ---
Update Note
Progress Note Update
TTE reviewed with Dr. Batres who recommends continued anticoagulation and repeat TTE in 1 month.
--- NOTE | 2024-12-04 15:34 | PTCARENOTE ---
Pt's IV & telemetry pack D/C'd. Discussed D/C instructions w/pt & spouse. Pt escorted out by staff via wheelchair. Pt left w/personal belongings incl cellphone, sane rn, laptop & sane rn, & clothing.
== END 2024-12-04 15:38 | disposition home health service (06) | DRG 286 ==
LOC: IVU 05:22
PROVIDERS: Internal Medicine; Internal Medicine Cardiovascular Disease; Student in an Organized Health Care Education/Training Program; Thoracic Surgery (Cardiothoracic Vascular Surgery); ADMITTING PHYSICIAN Hospitalist; ATTENDING PHYSICIAN Internal Medicine; CONSULT PHYSICIAN Internal Medicine; EMERGENCY PHYSICIAN Emergency Medicine; OTHER PHYSICIAN Thoracic Surgery (Cardiothoracic Vascular Surgery)
PROC: B2111ZZ Fluoroscopy of Multiple Coronary Arteries using Low Osmolar Contrast (ICD-10-PCS; 2024-11-30)
PROC: B24BZZ4 Ultrasonography of Heart with Aorta, Transesophageal (ICD-10-PCS; 2024-11-30)
PROC: 4A023N8 Measurement of Cardiac Sampling and Pressure, Bilateral, Percutaneous Approach (ICD-10-PCS; 2024-11-30)
DX: T82.857A Stenosis of other cardiac prosthetic devices, implants and grafts, initial encounter (principal); J96.01 Acute respiratory failure with hypoxia; I5A Non-ischemic myocardial injury (non-traumatic); F31.30 Bipolar disorder, current episode depressed, mild or moderate severity, unspecified; I05.0 Rheumatic mitral stenosis; Y71.2 Prosthetic and other implants, materials and accessory cardiovascular devices associated with adverse incidents; I27.20 Pulmonary hypertension, unspecified; I07.1 Rheumatic tricuspid insufficiency; I25.10 Atherosclerotic heart disease of native coronary artery without angina pectoris; N40.0 Benign prostatic hyperplasia without lower urinary tract symptoms; Z96.652 Presence of left artificial knee joint; Z95.5 Presence of coronary angioplasty implant and graft; I50.9 Heart failure, unspecified; I11.0 Hypertensive heart disease with heart failure; Z79.82 Long term (current) use of aspirin; Z95.3 Presence of xenogenic heart valve; E78.00 Pure hypercholesterolemia, unspecified; I25.2 Old myocardial infarction; M47.812 Spondylosis without myelopathy or radiculopathy, cervical region; N52.9 Male erectile dysfunction, unspecified; R73.03 Prediabetes; Z82.49 Family history of ischemic heart disease and other diseases of the circulatory system; Z11.52 Encounter for screening for COVID-19
CPT/HCPCS: 71046; 75572; 80048; 80053; 80178; 82962; 83036; 83605; 83735; 83880; 84145; 84484; 85025; 85027; 85730; 87040; 87502; 87811; 93005; 93306; 93308; 93312; 93320; 93321; 93325; 93460; 96365; 96375; 99152; 99153; 99291; C1769; C1894; Q9967

== ENCOUNTER → 2025-01-03 11:21 | Outpatient (REF) | payer OTHER, SELFPAY | LOC: RCS 11:21 | PROVIDERS: ATTENDING PHYSICIAN Internal Medicine Cardiovascular Disease; FAMILY PHYSICIAN Family Medicine | DX: Z95.5 Presence of coronary angioplasty implant and graft (principal); Z95.4 Presence of other heart-valve replacement | CPT/HCPCS: 93308; 93321; 93325 ==

== ENCOUNTER → 2025-02-14 09:29 | Outpatient (REF) | payer OTHER, SELFPAY | LOC: RCS 09:29 | PROVIDERS: ATTENDING PHYSICIAN Internal Medicine Cardiovascular Disease; FAMILY PHYSICIAN Family Medicine; OTHER PHYSICIAN Nurse Practitioner | DX: R42 Dizziness and giddiness (principal); R00.1 Bradycardia, unspecified | CPT/HCPCS: 93225; 93226 ==